=== PATIENT | female | born 1980 ===

== ENCOUNTER 2025-04-28 11:34 | Outpatient (REF) | payer OTHER, SELFPAY ==
--- OUTSIDE RECORDS SUMMARY | 2025-04-28 13:10 | XMS_ITS | Data Portability ---
Author Organization [facility], Main Office Address [address] [place] [address] Care Team Providers Care Candy Roller Name Role Phone ANTELMO FLORES Primary Care Provider MARIA ANTONIA LOREDO Staff Certified Nurse Midwife MILES WILLIAM Plastic/Reconstructive Surgeon TAMAR CORRIGAN Conservation Enforcement Officer JES HANSON Orthopedic Surgeon [phone] [facility] Referring Provider [facility] Phys. Med. & Rehab [facility] UROLOGY Urologist EVELYN MORE Referring Provider [phone] EMILE THOMAS Referring Provider Assessment Encounter Date Assessment Date Assessment LastModified by Organization Details LastModified Time 09/29/2024 09/29/2024 Discussed with patient the signs/symptom s warranted for a return to office visit and/or an ER visit. Patient understood and agreed with the plan. [email or web address] Not available 09/29/2024 15:49:41 Plan of Treatment Reminders Order Date Submit Date Provider Last Modified By Organization Details Last Modified Time Details Appointments FOLLOW UP 2024 09:45A M Antelmo trinh MD Not available Not available Not available Lab inflam mation panel, serum or plasma 2024 025 JEFE [facility] (Centralized Electronic Ordering - All Locations), Patient Can Go To The Location Of Their Choice, [id number] 12/24/2024 06:08:28 lipid panel, serum 2023 024 HOPKINS [facility] (Centralized Electronic Ordering - All Locations), Patient Can Go To The Location Of Their Choice, [address] 11/07/2024 08:06:35 CMP, serum or plasma 2023 024 [facility] (Centralized Electronic Ordering - All Locations), Patient Can Go To The Location Of Their Choice, [id number] 11/07/2024 08:06:35 CBC w/ auto diff 2023 024 [facility] (Centralized Electronic Ordering - All Locations), Patient Can Go To The Location Of Their Choice, [id number] 11/07/2024 08:06:34 Referral dermat luisito t referr al - Biancafu l skin lesion s at right side. 2024 025 [email or web address] [facility], [address], [address], [place], [address], 01/22/2025 08:56:51 Procedures None record ed. Surgeries None record ed. Imaging XR, chest, 2 view - Left-s ided chest pain. R/o lesion 2024 025 [facility] ([facility]), [address], [place], [address], 12/24/2024 16:52:51 electr ocardi ogram 2024 025 [email or web address] In-Office Order, Internal Use Only DO Not Attach Compendium DO Not Attach Compendium, Do Not Delete/merge, [id number] 12/23/2024 11:22:02 Medication Orders gabape ntin 300 mg capsul e 2024 025 [facility] #[id number], [address] [place], [address], 12/24/2024 09:29:13 valacy clovir 1 gram tablet 2024 025 [facility] #031, [address] [place], [address], 12/14/2024 11:41:37 oxycod one-ac etamin ophen 5 mg-325 mg tablet 2024 025 [facility] #0315, [address] [place], [address], 12/14/2024 11:50:51 Debrox 6.5 % ear drops 2023 024 [facility] #0315, [address] [place], [address], 10/12/2024 15:46:47 neomyc in-pete ymyxin -hydro doug 3.5 mg-10, 000 unit/m L-1 % ear drops, susp 2023 024 [facility] [address] [place], [address], 09/29/2024 15:35:47 Patient TargetsNo targets recorded. Patient Instructions Encounter Date Encounter Id Patient Instructions Last Modified By Organization Details Last Modified Time 08/16/2024 [id number] swimmer's ear: care instructions pmadden Not available 08/16/2024 16:32:47 Follow up if no improvement or if symptoms worsen. pmadden Not available 08/16/2024 17:39:37 12/14/2024 [id number] shingles: care instructions [email or web address] Not available 12/14/2024 11:41:34 [facility], all current and discharge medications (OTC, herbal therapies, supplements) reviewed and reconciled with patient and or caregiver, including potential side effects, drug interactions, instructions, and the consequences of not taking medication. Reviewed potential barriers to medication adherence, such as side effects from medication or cost of medication. Not available 12/14/2024 11:01:42 12/23/2024 [id number] skin lesions: care instructions [email or web address] Not available 12/23/2024 10:46:20 Reason for Referral Conservation Enforcement Officer Referral for S kin lesion Painful skin lesions at right side. Referring Physician: Antelmo Flores, Family Medicine, Encounter Date: 12/23/2024 Results Created Date Observation Date Name Description Value Unit Range Abnormal Flag Note LastModifiedBy Organization Detail LastModifiedTime 11/06/20 24 11/07/2024 CBC WITH DIFFE RENTI AL/PL ATELE T WBC 9.8 x10e3 /uL 3.4-10 .8 normal Not Available [facility] ([facility]) [address] [place], [address], 11/07/2024 08:06:34 11/06/20 24 11/07/2024 CBC WITH DIFFE RENTI AL/PL ATELE T RBC 4.82 x10e6 /uL 3.77-5 .28 normal Not Available [facility] ([facility]) [address] [place], [address], 11/07/2024 08:06:34 11/06/20 24 11/07/2024 CBC WITH DIFFE RENTI AL/PL ATELE T hemoglobin 14.5 g/dL 11.1-1 5.9 normal Not Available [facility] ([facility]) [address] [place], [address], 11/07/2024 08:06:34 11/06/20 24 11/07/2024 CBC WITH DIFFE RENTI AL/PL ATELE T hematocrit 44.5 % 34.0-4 6.6 normal Not Available [facility] ([facility]) [address] [place], [address], 11/07/2024 08:06:34 11/06/20 24 11/07/2024 CBC WITH DIFFE RENTI AL/PL ATELE T MCV 92 fL 79-97 normal Not Available [facility] ([facility]) [address] [place], [address], 11/07/2024 08:06:34 11/06/20 24 11/07/2024 CBC WITH DIFFE RENTI AL/PL ATELE T MCH 30.1 pg 26.6-3 3.0 normal Not Available [facility] ([facility]) [address] [place], [address], 11/07/2024 08:06:34 11/06/20 24 11/07/2024 CBC WITH DIFFE RENTI AL/PL ATELE T MCHC 32.6 g/dL 31.5-3 5.7 normal Not Available [facility] ([facility]) [address] [facility], [place], [address], 11/07/2024 08:06:34 11/06/20 24 11/07/2024 CBC WITH DIFFE RENTI AL/PL ATELE T RDW 12.9 % 11.7-1 5.4 Not Available [facility] ([facility]) [address] [facility], [place], [address], 11/07/2024 08:06:34 11/06/20 24 11/07/2024 CBC WITH DIFFE RENTI AL/PL ATELE T platelets 369 x10e3 /uL 150-45 0 normal Not Available [facility] ([facility]) [address] [facility], [place], [address], 11/07/2024 08:06:34 11/06/20 24 11/07/2024 CBC WITH DIFFE RENTI AL/PL ATELE T neutrophils 54 % not estab. normal Not Available [facility] ([facility]) [address] [facility], [place], [address], 11/07/2024 08:06:34 11/06/20 24 11/07/2024 CBC WITH DIFFE RENTI AL/PL ATELE T lymphs 32 % not estab. normal Not Available [facility] ([facility]) [address] [facility], [place], [address], 11/07/2024 08:06:34 11/06/20 24 11/07/2024 CBC WITH DIFFE RENTI AL/PL ATELE T monocytes 8 % not estab. normal Not Available [facility] ([facility]) [address] [facility], [place], [address], 11/07/2024 08:06:34 11/06/20 24 11/07/2024 CBC WITH DIFFE RENTI AL/PL ATELE T eos 5 % not estab. normal Not Available [facility] ([facility]) [address] [facility], [place], [address], 11/07/2024 08:06:34 11/06/20 24 11/07/2024 CBC WITH DIFFE RENTI AL/PL ATELE T basos 1 % not estab. normal Not Available [facility] ([facility]) [address] [place], [address], 11/07/2024 08:06:34 11/06/20 24 11/07/2024 CBC WITH DIFFE RENTI AL/PL ATELE T immature cells WE[employer] SERVICES ARCHITECT Not Available [facility] ([facility]) [address] [place], [address], 11/07/2024 08:06:34 11/06/20 24 11/07/2024 CBC WITH DIFFE RENTI AL/PL ATELE T neutrophils (absolute) 5.3 x10e3 /uL 1.4-7. 0 normal Not Available [facility] ([facility]) [address] [place], [address], 11/07/2024 08:06:34 11/06/20 24 11/07/2024 CBC WITH DIFFE RENTI AL/PL ATELE T lymphs (absolute) 3.2 x10e3 /uL 0.7-3. 1 above high normal Not Available [facility] ([facility]) [address] [place], [address], 11/07/2024 08:06:34 11/06/20 24 11/07/2024 CBC WITH DIFFE RENTI AL/PL ATELE T monocytes(ab solute) 0.8 x10e3 /uL 0.1-0. 9 normal Not Available [facility] ([facility]) [address] [place], [address], 11/07/2024 08:06:34 11/06/20 24 11/07/2024 CBC WITH DIFFE RENTI AL/PL ATELE T eos (absolute) 0.5 x10e3 /uL 0.0-0. 4 above high normal Not Available [facility] ([facility]) [address] [facility], [place], [address], 11/07/2024 08:06:34 11/06/20 24 11/07/2024 CBC WITH DIFFE RENTI AL/PL ATELE T baso (absolute) 0.1 x10e3 /uL 0.0-0. 2 normal Not Available [facility] ([facility]) [address] [facility], [place], [address], 11/07/2024 08:06:34 11/06/20 24 11/07/2024 CBC WITH DIFFE RENTI AL/PL ATELE T immature granulocytes 0 % not estab. Not Available [facility] ([facility]) [address] [facility], [place], [address], 11/07/2024 08:06:34 11/06/20 24 11/07/2024 CBC WITH DIFFE RENTI AL/PL ATELE T immature grans (abs) 0.0 x10e3 /uL 0.0-0. 1 Not Available [facility] ([facility]) [address] [facility], [place], [address], 11/07/2024 08:06:34 11/06/20 24 11/07/2024 CBC WITH DIFFE RENTI AL/PL ATELE T NRBC WE[employer] SERVICES ARCHITECT Not Available [facility] ([facility]) [address] [facility], [place], [address], 11/07/2024 08:06:34 11/06/20 24 11/07/2024 CBC WITH DIFFE RENTI AL/PL ATELE T hematology comments: WEB SERVICES ARCHITECT Not Available [facility] ([facility]) [address] [facility], [place], [address], 11/07/2024 08:06:34 11/06/20 24 11/07/2024 COMP. METAB OLIC PANEL (14) glucose 82 mg/dL 70-99 normal Not Available [facility] ([facility]) [address] [facility], [place], [address], 11/07/2024 08:06:35 11/06/20 24 11/07/2024 COMP. METAB OLIC PANEL (14) BUN 10 mg/dL 6-24 normal Not Available [facility] ([facility]) [address] [facility] [place], [address], 11/07/2024 08:06:35 11/06/20 24 11/07/2024 COMP. METAB OLIC PANEL (14) creatinine 0.82 mg/dL 0.57-1 .00 normal Not Available [facility] ([facility]) [address] [facility] [place], [address], 11/07/2024 08:06:35 11/06/20 24 11/07/2024 COMP. METAB OLIC PANEL (14) eGFR 92 mL/mi n/1.7 3 >59 normal Not Available [facility] ([facility]) [address] [facility], [place], [address], 11/07/2024 08:06:35 11/06/20 24 11/07/2024 COMP. METAB OLIC PANEL (14) BUN/creatini ne ratio 12 9-23 normal Not Available [facility] ([facility]) [address] [facility] [place], [address], 11/07/2024 08:06:35 11/06/20 24 11/07/2024 COMP. METAB OLIC PANEL (14) sodium 138 mmol/ L 134-14 4 normal Not Available [facility] ([facility]) [address] [facility] [place], [address], 11/07/2024 08:06:35 11/06/20 24 11/07/2024 COMP. METAB OLIC PANEL (14) potassium 4.4 mmol/ L 3.5-5. 2 normal Not Available [facility] ([facility]) [address] [facility] [place], [address], 11/07/2024 08:06:35 11/06/20 24 11/07/2024 COMP. METAB OLIC PANEL (14) chloride 101 mmol/ L 96-106 normal Not Available [facility] ([facility]) [address] [facility] [place], [address], 11/07/2024 08:06:35 11/06/20 24 11/07/2024 COMP. METAB OLIC PANEL (14) carbon dioxide, total 26 mmol/ L 20- normal Not Available [facility] ([facility]) [address] [facility] [place], [address], 11/07/2024 08:06:35 11/06/20 24 11/07/2024 COMP. METAB OLIC PANEL (14) calcium 9.8 mg/dL 8.7-10 .2 normal Not Available [facility] ([facility]) [address] [facility] [place], [address], 11/07/2024 08:06:35 11/06/20 24 11/07/2024 COMP. METAB OLIC PANEL (14) protein, total 6.5 g/dL 6.0-8. 5 normal Not Available [facility] ([facility]) [address] [facility] [place], [address], 11/07/2024 08:06:35 11/06/20 24 11/07/2024 COMP. METAB OLIC PANEL (14) albumin 4.3 g/dL 3.9-4. 9 normal Not Available [facility] ([facility]) [address] [facility] [place], [address], 11/07/2024 08:06:35 11/06/20 24 11/07/2024 COMP. METAB OLIC PANEL (14) globulin, total 2.2 g/dL 1.5-4. 5 Not Available [facility] ([facility]) [address] [facility] [place], [address], 11/07/2024 08:06:35 11/06/20 24 11/07/2024 COMP. METAB OLIC PANEL (14) bilirubin, total 0.4 mg/dL 0.0-1. 2 normal Not Available [facility] ([facility]) [address] [facility] [place], [address], 11/07/2024 08:06:35 11/06/20 24 11/07/2024 COMP. METAB OLIC PANEL (14) alkaline phosphatase 62 IU/L 44-121 normal Not Available [facility] [address] [facility] [place] [address], 11/07/2024 08:06:35 11/06/20 24 11/07/2024 COMP. METAB OLIC PANEL (14) AST (SGOT) 17 IU/L 0-40 normal Not Available [facility] ([facility]) [address] [facility] [place], [address], 11/07/2024 08:06:35 11/06/20 24 11/07/2024 COMP. METAB OLIC PANEL (14) ALT (SGPT) 18 IU/L 0-32 normal Not Available [facility] ([facility]) [address] [facility] [place], [address], 11/07/2024 08:06:35 11/06/20 24 11/07/2024 LIPID PANEL cholesterol, total 175 mg/dL 100-19 9 normal Not Available [facility] ([facility]) [address] [facility] [place], [address], 11/07/2024 08:06:35 11/06/20 24 11/07/2024 LIPID PANEL triglyceride s 141 mg/dL 0-149 normal Not Available [facility] ([facility]) [address] [facility] [place], [address], 11/07/2024 08:06:35 11/06/20 24 11/07/2024 LIPID PANEL HDL cholesterol 53 mg/dL >39 normal Not Available [facility] ([facility]) [address] [facility] [place], [address], 11/07/2024 08:06:35 11/06/20 24 11/07/2024 LIPID PANEL VLDL cholesterol susana 25 mg/dL 5-40 Not Available [facility] ([facility]) [address] [facility] [place], [address], 11/07/2024 08:06:35 11/06/20 24 11/07/2024 LIPID PANEL LDL chol calc ([facility]) 97 mg/dL 0-99 Not Available [facility] ([facility]) [address] [facility], [place], [address], 11/07/2024 08:06:35 11/06/20 24 11/07/2024 LIPID PANEL LDL calc comment: WEB SERVICES ARCHITECT Not Available [facility] ([facility]) [address] [facility], [place], [address], 11/07/2024 08:06:35 12/23/19 25 12/23/2024 ESR-W ES+CR P sedimentatio n rate-westerg jason 2 mm/HR 0-32 normal Not Available [facility] ([facility]) [address] [facility], [place], [address], 12/24/2024 06:08:28 12/23/19 25 12/24/2024 ESR-W ES+CR P C-reactive protein, quant 2 mg/L 0-10 normal Not Available [facility] ([facility]) [address] [place], [address], 12/24/2024 06:08:28 12/23/19 25 12/23/2024 elect rocar diogr am No observ ation record ed. [email or web address] In-Office Order Internal Use Only DO Not Attach Compendium DO Not Attach Compendium, Do Not Delete/merge, [id number] 12/23/2024 12:56:19 12/23/19 jason chiu am No observ ation record ed. jose In-Office Order Internal Use Only DO Not Attach Compendium DO Not Attach Compendium, Do Not Delete/merge, [id number] 12/24/2024 08:21:27 12/24/19 25 12/24/2024 XR, chest , 2 view Examin ation: Chest perfor med on 025. Histor y: Wall pain. Findin gs: Fronta l and latera l views of the chest are compar ed to a prior study dated 014. The cardia c and medias tinal silhou ettes are within normal limits . The lungs are clear. The osseou s and soft tissue struct ures are unrema rkable . Surgic al clips are seen in the right upper quadra nt. Impres palmer: There is no acute cardio pulmon claude diseas e. WSN: [id number] Orderi ng Physic kassie: Antelmo Barajas Dictat ed By: Dannielle Martinez MD Dictat ed Date/T whitney: 4:49 pm Review ed By: Dannielle Martinez MD Signed By: Dannielle Martinez MD Signed Date/T whitney: 4:49 pm Transc ribed By: CSB Transc ribed Date/T whtiney: 4:49 pm Patien t Class: Outpat ient [facility] (Outpt Imaging) [address] [place], [address], 12/25/2024 13:13:49 04/01/2003/30/2025 MAMMO , scree gustavo, digit al, bilat eral No observ ation record ed. [email or web address] [facility] [address] [facility], [place], [address], 04/05/2025 13:37:00 Result Notes Documentation Provider Name and Address Organization Details Recorded Time Xr, Chest, 2 View : Examination: Chest performed on 12/24/2024. History: Wall pain. Findings: Frontal and lateral views of the chest are compared to a prior study dated 06/07/2014. The cardiac and mediastinal silhouettes are within normal limits. The lungs are clear. The osseous and soft tissue structures are unremarkable. Surgical clips are seen in the right upper quadrant. Impression: There is no acute cardiopulmonary disease. WSN: [id number] Ordering Physician: Antelmo Flores Dictated By: Dannielle Dhaliwal MD Dictated Date/Time: 12/24/24 4:49 pm Reviewed By: Dannielle Dhaliwal MD Signed By: Dannielle Dhaliwal MD Signed Date/Time: 12/24/24 4:49 pm Transcribed By: ADAN Transcribed Date/Time: 12/24/24 4:49 pm Patient Class: Outpatient Antelmo Flores MD [address], [address], [facility] 12/25/2024 08:15:53 Problems Name Problem SNOMED Code Status Onset Date Resolution Date Notes Provider Name and Address Organization Details Recorded Time Acute asthma [id number] Completed 201205/24/2014 IMPRESSI ON: ADVAIR FOR THE WEEK TO GET SXS UNDER CONTROL. ; RECORDED 10/08/20 13 1:39PM BY JAMESON DOBSON MA, ANNOTATI ON/MEL Flores MD [address] [address], [place], [address] , [facility] 6 17:34:35 Acute pharyngi tis [id number] Completed 201205/24/2014 IMPRESSI ON: ADVISED HER TO TAKE 800 MG IBUPROFE N. NO ABX NEEDED. WILL SEND FOR CX.; RECORDED 11/25/19 13 3:56PM BY ULISSES MUNOZ ON/MEL Flores MD [address] [address], [place], [address] , [facility] 6 17:34:35 Patient status finding [id number] Completed 201205/24/2014 RECORDED 11/01/20 13 1:48PM BY ULISSES MUNOZ ON/MEL Flores MD [address] [address], [place], [address] , [facility] 6 17:34:35 Intrinsi c asthma [id number] Completed 201105/24/2014 RECORDED 06/16/20 12 12:59PM BY ULISSES MUNOZ ON/MEL Flores MD [address] [address], [place], [address] , [facility] 6 17:34:35 Screenin g for malignan t neoplasm of cervix Completed 201205/24/2014 RECORDED 10/08/20 13 1:39PM BY JAMESON DOBSON MA, ULISSES ON/MEL Flores MD [address] [address], [place], [address] , [facility] 6 17:34:35 History of depressi on [id number] Completed 201105/24/2014 RECORDED 06/16/20 12 12:59PM BY ULISSES MUNOZ ON/MEL Flores MD [address] [address], [place], [address] , [facility] 6 17:34:35 Diarrhea 37638393 Completed 201105/24/2014 IMPRESSI ON: SXS NOW X > 1 WEEK, MAINLY GEN ABDO CRAMPING AND WATERY DIARRHEA . NO CLEAR CLOSE SICK CONTACTS , NO TRAVEL OR UNUSUAL FOODS, NO RECENT ABX USE. GIVEN DURATION AND SEVERITY CHECK LABS AND STOOL STUDIES. ADVISED RE HYDRATIO N, BRAT DIET, AVOID DAIRY AND FATTY FOODS. WILL BE IN TOUCH WITH RESULTS, PT TO CALL SOONER PRN.; RECORDED 10/27/20 12 1:22PM BY ULISSES MUNOZ ON/ADDEN DUM Antelmo Flores MD [address] [facility] [address], [place], [address] , [facility] 6 17:34:35 Dizzines s and giddines s [id number] Completed 201105/24/2014 RECORDED 06/16/20 12 12:59PM BY CHARI LIVINGSTON I, ANNOTATI ON/ Antelmo Flores MD [address] [facility] [address], [place], [address] , [facility] 6 17:34:35 Blood coagulat ion disorder 99798499 Completed 201307/25/2014 RECORDED 04/13/20 14 3:53PM BY YARA العراقي MA, OFFICE VISIT Antelmo Flores MD [address] [address], [place], [address] , [facility] 6 17:34:35 Malaise and fatigue 265266705 Completed 201105/24/2014 RECORDED 10/27/20 12 1:22PM BY CHARI LIVINGSTON I, NISHIATI ON/ [facility] 7 15:09:29 Influenz a vaccine needed [id number] 06 Completed 201205/24/2014 RECORDED 11/25/19 13 4:08PM BY CHARI LIVINGSTON I, OFFICE VISIT Antelmo Flores MD [address] [facility] [address], [place], [address] , [facility] 6 17:34:35 Noninfec tious gastroen teritis 07677381 Completed 201105/24/2014 IMPRESSI ON: DAY THREE, NOW WITH DIARRHEA ONLY. NO FEVERS, TOLERATI NG PO WELL. ADVISED RE IMPORTAN CE OF ORAL REHYDRAT ION, BRAT DIET. CALL FOR WORSENIN G/PRN. TO ER FOR S/SXS OF DEHYDRAT ION WHICH WERE DISCUSSE D WITH PT AND . ; RECORDED 10/27/20 12 1:22PM BY ULISSES MUNOZ ON/ADDJOHN PAUL Flores MD [address] [address], [place], [address] , [facility] 6 17:34:35 Pain in limb 99109019 Completed 201105/24/2014 IMPRESSI ON: NEED TO R/O DVT. IT IS ALMOST 5PM. PHYSICAL EXAM IS CONVINCI NG FOR DVT SO NEED TO R/O URGENTLY PT SENT TO ER.; RECORDED 06/16/20 12 12:59PM BY ULISSES MUNOZ ON/MEL Flores MD [address] [address], [place], [address] , [facility] 6 17:34:35 Cataplex y and narcolep sy 378674443 Active 2013 Not Available [facility] 1 09:53:05 Administ ration of bacteria l and viral vaccine Completed 201105/24/2014 RECORDED 11/18/19 12 12:58PM BY MARIANA MOREL, MAEIC AL SUMMARY Antelmo Flores MD [address] [address], [place], [address] , [facility] 6 17:34:35 Varicell a vaccinat ion Completed 201105/24/2014 RECORDED 11/18/19 12 12:58PM BY MORENO CODY AL SUMMARY Antelmo Flores MD [address] [facility] [address], [place], [address] , [facility] 6 17:34:35 Phlebiti s and thrombop hlebitis Completed 201205/24/2014 RECORDED 11/01/20 13 1:48PM BY ULISSES MUNOZ ON/ADDEN DUM Antelmo Flores MD [address] [address], [place], [address] , [facility] 6 17:34:35 Adult health examinat ion Completed 201205/24/2014 RECORDED 04/30/20 13 10:31AM BY ULISSES MUNOZ ON/MEL Flores MD [address], [place], [address] , [facility] 6 17:34:35 Acute sinusiti s 25814014 Completed 201205/24/2014 IMPRESSI ON: GIVE IT 4 MORE DAYS BEFORE STARTING ABX. DO FLONASE AND SUDAFED; RECORDED 10/08/20 13 1:39PM BY JAMESON DOBSON MA, ANNOTATI ON/MEL [facility]o [facility] 0 12:55:38 Disorder of skin and/or subcutan eous tissue 73718643 Active 2012 Not Available [facility] 1 09:53:05 Streptoc occal sore throat 92998974 Completed 201205/24/2014 RECORDED 11/25/19 13 3:56PM BY ULISSES MUNOZ ON/MEL Flores MD [address], [place] [place], [address] , [facility] 6 17:34:35 Abnormal ity of systemic vein [id number] Completed 201105/24/2014 RECORDED 06/16/20 12 12:59PM BY ULISSES MUNOZ ON/MEL Flores MD [address] [facility] [address], [place], [address] , [facility] 6 17:34:35 Retentio n of urine [id number] Completed 201205/24/2014 IMPRESSI ON: GIVEN THE FACT THAT THIS HAS BEEN GOING ON FOR YEARS IT IS PROBABLY A SIDE EFFECT OF THE STRATERR A WHICH SHE HAS BEEN ON FOR THE SAME AMOUNT OF TIME.; RECORDED 04/30/20 13 10:31AM BY ULISSES MUNOZ ON/MEL Flores MD [address] [address], [place], [address] , [facility] 6 17:34:35 Acute asthma [id number] Completed 201206/20/2014 IMPRESSI ON: ADVAIR FOR THE WEEK TO GET SXS UNDER CONTROL. ; RECORDED 10/08/20 13 1:39PM BY JAMESON DOBSON MA, ULISSES ON/MEL Flores MD [address] [address], [place], [address] , [facility] 6 17:34:35 Acute pharyngi tis [id number] Completed 201206/20/2014 IMPRESSI ON: ADVISED HER TO TAKE 800 MG IBUPROFE N. NO ABX NEEDED. WILL SEND FOR CX.; RECORDED 11/25/19 13 3:56PM BY ULISSES MUNOZ ON/MEL Flores MD [address] [address], [place], [address] , [facility] 6 17:34:35 Patient status finding [id number] Completed 201206/20/2014 RECORDED 11/01/20 13 1:48PM BY ULISSES MUNOZ ON/MEL Flores MD [address] [address], [place], [address] , [facility] 6 17:34:35 Intrinsi c asthma [id number] Completed 201106/20/2014 RECORDED 06/16/20 12 12:59PM BY ULISSES MUNOZ ON/MEL Flores MD [address] [address], [place], [address] , [facility] 6 17:34:35 Screenin g for malignan t neoplasm of cervix Completed 201206/20/2014 RECORDED 10/08/20 13 1:39PM BY JAMESON DOBSON MA, ULISSES ON/MEL Flores MD [address] [address], [place], [address] , [facility] 6 17:34:35 History of depressi on [id number] Completed 201106/20/2014 RECORDED 06/16/20 12 12:59PM BY ULISSES MUNOZ ON/MEL Flores MD [address] [address], [place], [address] , [facility] 6 17:34:35 Diarrhea [id number] Completed 201106/20/2014 IMPRESSI ON: SXS NOW X > 1 WEEK, MAINLY GEN ABDO CRAMPING AND WATERY DIARRHEA . NO CLEAR CLOSE SICK CONTACTS , NO TRAVEL OR UNUSUAL FOODS, NO RECENT ABX USE. GIVEN DURATION AND SEVERITY CHECK LABS AND STOOL STUDIES. ADVISED RE HYDRATIO N, BRAT DIET, AVOID DAIRY AND FATTY FOODS. WILL BE IN TOUCH WITH RESULTS, PT TO CALL SOONER PRN.; RECORDED 10/27/20 12 1:22PM BY ULISSES MUNOZ ON/MEL Flores MD [address] [address], [place], [address] , [facility] 6 17:34:35 Dizzines s and giddines s [id number] Completed 201106/20/2014 RECORDED 06/16/20 12 12:59PM BY ULISSES MUNOZ ON/MEL Flores MD [address] [address], [place], [address] , [facility] 6 17:34:35 Malaise and fatigue [id number] Completed 201106/20/2014 RECORDED 10/27/20 12 1:22PM BY NISHI MUNOZATI ON/ADDEN DUM Martha Tello MA [facility] 7 15:09:29 Influenz a vaccine needed [id number] 06 Completed 201206/20/2014 RECORDED 11/25/19 13 4:08PM BY CHARI LIVINGSTON I, OFFICE VISIT Antelmo Flores MD [address] [facility] [address], [place], [address] , [facility] 6 17:34:35 Noninfec tious gastroen teritis [id number] Completed 201106/20/2014 IMPRESSI ON: DAY THREE, NOW WITH DIARRHEA ONLY. NO FEVERS, TOLERATI NG PO WELL. ADVISED RE IMPORTAN CE OF ORAL REHYDRAT ION, BRAT DIET. CALL FOR WORSENIN G/PRN. TO ER FOR S/SXS OF DEHYDRAT ION WHICH WERE DISCUSSE D WITH PT AND . ; RECORDED 10/27/20 12 1:22PM BY NISHI MUNOZATI ON/ADDEN DUM Antelmo Flores MD [address] [facility] [address], [place], [address] , [facility] 6 17:34:35 Pain in limb 23222912 Completed 201106/20/2014 IMPRESSI ON: NEED TO R/O DVT. IT IS ALMOST 5PM. PHYSICAL EXAM IS CONVINCI NG FOR DVT SO NEED TO R/O URGENTLY PT SENT TO ER.; RECORDED 06/16/20 12 12:59PM BY CHARI LIVINGSTON I, NISHIATI ON/ADDEN DUM Antelmo Flores MD [address] [facility] [address], [place], [address] , [facility] 6 17:34:35 Administ ration of bacteria l and viral vaccine Completed 201106/20/2014 RECORDED 11/18/19 12 12:58PM BY MARIANA MOREL, HISTORIC AL SUMMARY Antelmo Flores MD [address] [facility] [address], [place], [address] , [facility] 6 17:34:35 Varicell a vaccinat ion Completed 201106/20/2014 RECORDED 11/18/19 12 12:58PM BY MARIANA MOREL, HISTORIC AL SUMMARY Antelmo Flores MD [address] [facility] [address], [place], [address] , [facility] 6 17:34:35 Patient status finding [id number] Completed 201307/25/2014 RECORDED 04/21/20 14 8:39AM BY ULISSES MUNOZ ON/ADDJOHN PAUL Flores MD [address] [facility] [address], [place], [address] , [facility] 6 17:34:35 Phlebiti s and thrombop hlebitis Completed 201206/20/2014 RECORDED 11/01/20 13 1:48PM BY ULISSES MUNOZ ON/MLE Flores MD [address] [facility] [address], [place], [address] , [facility] 6 17:34:35 Adult health examinat ion Completed 201206/20/2014 RECORDED 04/30/20 13 10:31AM BY ULISSES MUNOZ ON/MEL Flores MD [address] [facility] [address], [place], [address] , [facility] 6 17:34:35 Acute sinusiti s [id number] Completed 201206/20/2014 IMPRESSI ON: GIVE IT 4 MORE DAYS BEFORE STARTING ABX. DO FLONASE AND SUDAFED; RECORDED 10/08/20 13 1:39PM BY JAMESON DOBSON MA, ULISSES ON/ADDEN DUM YEN Mayes, [facility] 0 12:55:38 Disorder of skin and/or subcutan eous tissue [id number] Completed 201306/20/2014 IMPRESSI ON: POSSIBLE URTICARI A OF UNCLEAR ETIOLOGY ; WILL TREAT WITH ANTI-HIS TAMINE AND DO A REFERRAL FOR A DERMATOL OGIST.; RECORDED 04/13/20 14 11:46AM BY YARA العراقي MA, ULISSES ON/ADDEN RHINA Tamara KeonAna tineo MA null, [facility] 0 12:55:43 Streptoc occal sore throat 73134983 Completed 201206/20/2014 RECORDED 11/25/19 13 3:56PM BY ULISSES MUNOZ/MEL Flores MD [address], [place], [address] , [facility] 6 17:34:35 Abnormal ity of systemic vein 629992793 Completed 201106/20/2014 RECORDED 06/16/20 12 12:59PM BY ULISSES MUNOZ ON/MEL Flores MD [address], [place], [address] , [facility] 6 17:34:35 Acute upper respirat ory infectio n [id number] Completed 201306/20/2014 IMPRESSI ON: SINUS RINSE ALSO IF NOT IMPROVIN G IN 1 WEEK CALL THE OFFICE.; RECORDED 04/21/20 14 8:38AM BY ULISSES MUNOZ/MEL Flores MD [address], [place], [address] , [facility] 6 17:34:35 Retentio n of urine [id number] Completed 201206/20/2014 IMPRESSI ON: GIVEN THE FACT THAT THIS HAS BEEN GOING ON FOR YEARS IT IS PROBABLY A SIDE EFFECT OF THE STRATERR A WHICH SHE HAS BEEN ON FOR THE SAME AMOUNT OF TIME.; RECORDED 06/21/20 13 10:31AM BY ULISSES MUNOZ ON/MEL Flores MD [address], [place], [address] , [facility] 6 17:34:35 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 434777314 Active 2013 Not Available [facility] 09:53:05 Factor V deficien cy 2127831 Active Not Available [facility] 09:53:05 Decrease d hearing 399204654 Active Not Available [facility] 09:53:05 Conjunct ivitis 7488810 Completed 08/03/2015 Antelmo Flores MD [address], [place], [address] , [facility] 6 17:34:35 Chalazio n 7143074 Active Not Available [facility] 09:53:05 Acute conjunct ivitis 22046614 Completed 10/01/2017 [place], [facility] 7 15:09:52 Acute sinusiti s 54366328 Completed 09/05/2020 YEN Mayes, [facility] 0 12:55:37 Otitis media 08578532 Active Not Available [facility] 09:53:05 Computed tomograp hy result abnormal 657766074 Active Not Available [facility] 09:53:05 Thyroid nodule 768640905 Active Not Available [facility] 09:53:05 Migraine 92981705 Active Followed by Dr Quintero Not Available [facility] 09:53:05 Backache 988793009 Active Not Available [facility] 09:53:05 Low back pain 652451764 Active seen at [facility] and improved with injectio ns Not Available [facility] 09:53:05 Ptosis of eyelid 86460900 Active 2014 Upper lid; followed by Dr William Not Available [facility] 1 09:53:05 Malaise and fatigue 508387784 Completed 10/01/2017 Martha park, [facility] 7 15:09:29 Epidermo id cyst 850269417 Active 2016 Right axilla; drained by derm Not Available [facility] 1 09:53:05 Bilatera l knee pain Completed 201610/01/2017 Martha park, [facility] 7 15:09:37 Swelling of knee joint 517460315 Active 2016 Not Available [facility] 1 09:53:05 Pain of wrist region 00027152 Active 2017 Not Available [facility] 1 09:53:05 Herniati on of lumbar interver tebral disc with sciatica 73546460176 4105 Active 2020 Herniati on at L5-S1. 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 Schedule d for microdis cectomy. Antelmo Flores MD [address], [place], [address] , [facility] 2 08:33:40 Obesity 666490399 Active 2021 Alley [place], [facility] 2 09:59:23 Overacti ve urinary bladder 789195054 Active 2021 Followed by urology and stable on meds. Antelmo Flores MD [address], [place], [address] , [facility] 2 11:08:55 History of SARS-CoV -2 [id number] 2582414 Active 2021 Antelmo Flores MD [address], [place], [address] , [facility] 2 15:44:46 COVID-19 067382601 Completed 202209/29/2024 Tamara tineo MA null, [facility] 4 15:35:54 Generali zed anxiety disorder 09208537 Active 2022 Antelmo Flores MD [address], [place], [address] , [facility] 3 16:20:05 Insomnia 312974786 Active 2022 Antelmo Flores MD [address], [place], [address] , [facility] 3 16:20:14 Major depressi ve disorder 218280643 Active 2022 Antelmo Flores MD [address], [place], [address] , [facility] 3 16:20:24 Morbid obesity 489556271 Completed 202310/13/2024 Removal Reason: resolved on weight loss meds Antelmo Flores MD [address], [place], [address] , [facility] 4 11:11:15 Body mass index 30+ - obesity 692945482 Active 2023 Gabo Garcia MD [address], [place], [address] , [facility] 4 17:03:55 Problem Notes None recorded. Procedures Surgical History Date Name Laterality Status Provider Name and Address Organization Details Recorded Time 025 Most Recent Mammogram completed Anne Lance [facility] 04/05/2025 13:36:57 025 Mammogram screening completed Anne Lance [facility] 04/05/2025 13:34:57 024 Mammogram both breasts completed Patsy Nugent [facility] 03/31/2024 13:05:10 022 Date of Last Pap Smear completed Karen Martinez [facility] 10/13/2024 10:08:55 022 laminectomy completed Justyna Peñaloza RN [facility] 01/17/2022 09:42:38 021 injection completed Jess Morel [facility] 06/01/2021 14:49:17 021 injection of facet joint completed Jess Morel [facility] 01/03/2021 09:37:39 019 electromyography completed Jess Adriel [facility] 06/25/2019 09:04:23 017 Other completed Antelmo Flores MD [address], [address], [facility] 05/10/2019 16:16:20 016 Eye Surgery completed Jessadrienne Morel [facility] 11/14/2016 11:09:40 016 injection of cortisone completed Tamara evans MA [facility] 09/29/2024 15:38:27 014 Caesarean Section completed Chari Damon [facility] 07/25/2014 13:57:02 011 Rhinoplasty completed Antelmo Flores MD [address] [address], [place], [address], [facility] 05/10/2019 16:17:15 005 Cholecystectomy completed Antelmo Flores MD [address], [address], [facility] 07/25/2014 14:09:39 005 Colonoscopy completed Rhona Good MA [facility] 08/03/2020 15:49:35 990 Tonsillectomy completed Antelmo Flores MD [address] [facility] [address], [place], [address], [facility] 05/10/2019 16:17:52 987 Tonsillectomy completed Rhona Good MA [facility] 08/03/2020 15:49:35 987 Adenoidectomy completed Rhona Good MA [facility] 08/03/2020 15:49:35 Imaging Results None recorded. Procedure Notes None recorded. Medical Equipment None Reported. Allergies Allergen ID Allergen Name Allergen Category Reaction Reaction Severity Criticality Documentation Date Start Date Code Code System Note Provider Name and Address Organization Details Recorded Time 09537 Augmentin medicatio n Not available Not available Not available 08/03/2020 16523 2 [facility] 15:[facility]05 3867 Product containin g penicilli n (product) medicatio n rash Not available Not available 05/24/2014 [address] [facility] [address], [place], [address], [facility] 5 15:59:51 Medications Name Sig Start Date Stop Date Status Note LastModified by Organization Details LastModified Time Prescript ion - Renewal 08/08 completed Not Available Not Available Not Available cyclobenz aprine 10 mg tablet TAKE 1 TABLET (ORAL) AT BEDTIME NEEDED FOR MUSCLE SPASM 05/26 completed Not Available Not Available Not Available Mirena 21 mcg/24 hr (up to 8 years) 52 mg intrauter ine device Take 1 device every day by intraute rine route. active Not Available Not Available No t Available terconazo le 0.4 % vaginal cream 05/02 completed Not Available Not Available Not Available prednison e 10 mg tablet 05/10 completed Not Available Not Available Not Available doxycycli ne hyclate 100 mg capsule Take 1 capsule twice a day by oral route as directed for 7 days. 10/01 completed Not Available Not Available Not Available clindamyc in HCl 300 mg capsule TAKE 1 CAPSULE BY MOUTH THREE TIMES A DAY FOR 7 DAYS 08/16 completed Not Available Not Available Not Available Vitamin C 500 mg tablet Take 1 tablet every day by oral route. active Not Available Not Available No t Available trazodone 50 mg tablet 05/10 completed Not Available Not Available Not Available cetirizin e 10 mg tablet TAKE 1 TABLET BY MOUTH EVERY DAY active Not Available Not Available No t Available oxybutyni n chloride ER 10 mg tablet,ex tended release 24 hr active Not Available Not Available Not Available azithromy lalo 250 mg tablet DAILY 05/02 completed Not Available Not Available Not Available tizanidin e 4 mg tablet TAKE 1 TABLET BY MOUTH 3 TIMES A DAY, NEEDED FOR SPASMS 09/24 completed Not Available Not Available Not Available methylphe nidate 10 mg tablet 10/01 completed Not Available Not Available Not Available valacyclo vir 1 gram tablet TAKE 1 TABLET BY MOUTH EVERY 12 HOURS FOR 5 DAYS active Not Available Not Available No t Available sumatript an 100 mg tablet take 1 at start of headache and may repeat in 2 hours with a max in 2 in 24 hours. 05/10 completed Not Available Not Available Not Available tolterodi ne ER 4 mg capsule,e xtended release 24 hr TAKE 1 CAPSULE BY MOUTH EVERY DAY active Not Available Not Available No t Available methylphe nidate 20 mg tablet Take 1 tablet twice a day by oral route. 05/10 completed Not Available Not Available Not Available meloxicam 15 mg tablet TAKE 1 TABLET BY MOUTH EVERY DAY 08/03 completed Not Available Not Available Not Available ondansetr on HCl 4 mg tablet Take 2 tablets twice a day by oral route as needed for 3 days. 05/10 completed Not Available Not Available Not Available prednison e 20 mg tablet TAKE 2 TABLETS BY MOUTH EVERY DAY FOR 5 DAYS 05/26 completed Not Available Not Available Not Available clonazepa m 0.5 mg tablet Take 2 tablets twice a day by oral route. 08/01 completed Not Available Not Available Not Available sertralin e 100 mg tablet TAKE 2 TABLETS BY MOUTH EVERY DAY active Not Available Not Available No t Available clonazepa m 1 mg tablet 10/01 completed Not Available Not Available Not Available Debrox 6.5 % ear drops INSTILL 5 DROPS INTO AFFECTED EAR(S) BY OTIC ROUTE 2 TIMES PER DAY 10/12 completed Not Available Not Available Not Available clobetaso l 0.05 % topical cream active Not Available Not Available Not Available Advair Diskus 100 mcg-50 mcg/dose powder for inhalatio n TWO TIMES DAILY 05/07 completed RECORDED 05/20/20 13 1:48PM BY GEO ESCALANTE, MEDICATI ON AUTO-AMBER CTIVATIO N; Not Available Not Available Not Available zolmitrip plaza 5 mg disintegr ating tablet Take 1 at start of LOFTON and MR x1 after 2 hours with max of 2 in 24 hours 12/26 completed Not Available Not Available Not Available sulfameth oxazole 800 mg-trimet hoprim 160 mg tablet TAKE 1 TABLET BY MOUTH TWICE A DAY FOR 5 DAYS 09/24 completed Not Available Not Available Not Available aspirin 81 mg tablet,de layed release Take 1 tablet every day by oral route. active Not Available Not Available No t Available ondansetr on 8 mg disintegr ating tablet PLACE 1 TABLET TWICE A DAY BY TRANSLIN GUAL ROUTE NEEDED, FOR NAUSEA. active Not Available Not Available No t Available oxycodone -acetamin ophen 5 mg-325 mg tablet TAKE 1 TABLET BY MOUTH TWICE A DAY NEEDED FOR 7 DAYS active Not Available Not Available No t Available lorazepam 0.5 mg tablet Take 1 tablet every day by oral route for 10 days. 09/24 completed Not Available Not Available Not Available trazodone 100 mg tablet TAKE 1 TABLET TWICE A DAY BY ORAL ROUTE FOR 90 DAYS FOR INSOMNIA . 2024 active Not Available Not Available Not Avai lable benzonata te 100 mg capsule TAKE 1 CAPSULE BY MOUTH THREE TIMES A DAY FOR COUGH active Not Available Not Available No t Available erythromy lalo 5 mg/gram (0.5 %) eye ointment 09/03 completed Not Available Not Available Not Available nortripty line 10 mg capsule 05/10 completed Not Available Not Available Not Available buspirone 30 mg tablet 1 bid 08/01 completed Not Available Not Available Not Available buspirone 10 mg tablet TAKE 2 TABLETS BY MOUTH TWICE A DAY active Not Available Not Available No t Available polymyxin B sulfate 10,000 unit-trim ethoprim 1 mg/mL eye drops INSTILL 1 DROP BY OPHTHALM IC ROUTE 4 TIMES A DAY FOR 7 DAYS 09/04 completed Not Available Not Available Not Available warfarin 5 mg tablet QD PER INR RESULTS 11/25 completed RECORDED 11/25/19 13 4:41PM BY ANTELMO MARTINEZ MD, ANNOTATI ON/ADDJOHN PAUL DUM; Not Available Not Available Not Available fluoxetin e 10 mg capsule Take 1 capsule every day by oral route. 10/01 completed Not Available Not Available Not Available gabapenti n 300 mg capsule Take 1 capsule 3 times a day by oral route for 30 days. active Not Available Not Available No t Available buspirone 7.5 mg tablet 05/02 completed Not Available Not Available Not Available diclofena c sodium 75 mg tablet,de layed release 09/03 completed Not Available Not Available Not Available hydroxyzi ne HCl 25 mg tablet TAKE 1 TABLET 3 TIMES A DAY BY ORAL ROUTE FOR 90 DAYS, FOR ANXIETY. 10/12 completed Not Available Not Available Not Available oxycodone -acetamin ophen 2.5 mg-325 mg tablet 1 three times a day for 3 days, then 1 two times a day for 3 days then 1 daily for 3 days. 09/24 completed Not Available Not Available Not Available Aspirin EC 325 mg tablet,de layed release THREE TIMES DAILY, NEEDED W/ FOOD 10/18 completed RECORDED 10/18/20 13 10:59AM BY NACHO GARCIA MD, MEDICATI ON AUTO-AMBER CTIVATIO N; Not Available Not Available Not Available lorazepam 1 mg tablet active Not Available Not Available Not Available diazepam 10 mg tablet 10/01 completed Not Available Not Available Not Available methylpre dnisolone 4 mg tablets in a dose pack 08/03 completed Not Available Not Available Not Available albuterol sulfate HFA 90 mcg/actua tion aerosol inhaler INHALE 2 PUFFS EVERY 4 HOURS NEEDED FOR 30 DAYS active Not Available Not Available No t Available ondansetr on 4 mg disintegr ating tablet 05/10 completed Not Available Not Available Not Available fluticaso ne propionat e 50 mcg/actua tion nasal spray,luiz pension INHALE 2 SPRAYS INTO EACH NOSTRIL ONCE DAILY DIRECTED 05/26 completed Not Available Not Available Not Available sertralin e 50 mg tablet Take 1 tablet every day by oral route for 30 days. 09/05 completed Not Available Not Available Not Available buspirone 15 mg tablet TAKE 1 TABLET TWICE A DAY BY ORAL ROUTE FOR 90 DAYS, FOR ANXIETY. 12/14 completed Not Available Not Available Not Available neomycin- polymyxin -hydrocor t 3.5 mg-10,000 unit/mL-1 % ear drops,luiz p PLEASE SEE ATTACHED FOR DETAILED DIRECTIO NS 09/29 completed Not Available Not Available Not Available enoxapari n 80 mg/0.8 mL subcutane ous syringe TWO TIMES DAILY 03/30 completed RECORDED 03/30/20 12 10:52AM BY GEO ESCALANTE, MEDICATI ON AUTO-AMBER CTIVATIO N; Not Available Not Available Not Available enoxapari n 100 mg/mL subcutane ous syringe active RECORDED 04/07/20 12 4:11PM BY JOSE CATHERINE, ANNOTATI ON/ADD DUM; Not Available Not Available Not Available enoxapari n 40 mg/0.4 mL subcutane ous syringe active Not Available Not Available Not Available TriNessa (28) 0.18 mg(7)/0.2 15 mg(7)/0.2 5 mg(7)-35 mcg tablet DAILY active RECORDED 06/16/20 12 2:22PM BY ANTELMO MARTINEZ MD, ANNOTATI ON/ADDEN DUM; Not Available Not Available Not Available mirtazapi ne 7.5 mg tablet TAKE 1 TABLET BY MOUTH EVERY DAY AT NIGHT active Not Available Not Available No t Available solifenac in 10 mg tablet TAKE 1 TABLET BY MOUTH EVERY DAY 03/21 completed Not Available Not Available Not Available Vesicare 5 mg tablet Take 1 tablet every day by oral route. 05/10 completed Not Available Not Available Not Available Vicodin EVERY FOUR HOURS, NEEDED FOR PAIN 04/03 completed RECORDED 04/03/20 12 12:08PM BY GEO ESCALANTE, MEDICATI ON AUTO-AMBER CTIVATIO N; Not Available Not Available Not Available biotin active Not Available Not Availa ble Not Available intrauter ine device (IUD) 12/12 completed Not Available Not Available Not Available Vitamin D3 take 1 tablet po daily active Not Available Not Available No t Available Adderall XR (10mg) DAILY active RECORDED 11/25/19 13 4:41PM BY ANTELMO MARTINEZ MD, ANNOTATI ON/MEL DUM; Not Available Not Available Not Available desvenlaf axine succinate ER 50 mg tablet,ex tended release 24 hr Take 1 tablet every day by oral route. 08/10 completed Not Available Not Available Not Available desvenlaf axine succinate ER 100 mg tablet,ex tended release 24 hr Take 1 tablet every day by oral route for 90 days. 08/03 completed Not Available Not Available Not Available Afluria Qd 2018- (36 mos up)(PF)60 mcg (15 mcg x4)/0.5 mL IM syringe 05/02 completed Not Available Not Available Not Available BinaxNOW COVID-19 Ag Self Test kit USE DIRECTED 09/04 completed Not Available Not Available Not Available Wegovy 2.4 mg/0.75 mL subcutane ous pen injector INJECT 2.4 MG EVERY WEEK BY SUBCUTAN EOUS ROUTE FOR 28 DAYS. 2024 active Not Available Not Available Not Avai lable Wegovy 1.7 mg/0.75 mL subcutane ous pen injector Inject 1.7 mg every week by subcutan eous route for 28 days, for weight loss. 08/11 completed increase d the dose Not Available Not Available Not Available Wegovy 1 mg/0.5 mL subcutane ous pen injector Inject by subcutan eous route for 28 days. 07/14 completed Went to dose 1.7. Not Available Not Available Not Available Wegovy 0.25 mg/0.5 mL subcutane ous pen injector INJECT 0.25 MG EVERY WEEK BY SUBCUTAN EOUS ROUTE FOR 28 DAYS, FOR WEIGHT LOSS. 05/26 completed increase wd dose Not Available Not Available Not Available Wegovy 0.5 mg/0.5 mL subcutane ous pen injector Inject by subcutan eous route for 28 days. 08/11 completed increase d the dose Not Available Not Available Not Available Paxlovid 300 mg (150 mg x 2)-100 mg tablets in a dose pack TAKE 3 TABLETS BY MOUTH TWICE A DAY DIRECTED FOR 5 DAYS 01/05 completed Not Available Not Available Not Available Vitals Date Recorded Body height Body mass index (BMI) Body weight Heart rate Oxygen saturation Oxygen saturation in Arterial blood by Pulse oximetry Body temperature Systolic blood pressure Diastolic blood pressure Provider Name and Address Organization Details Last Updated DateTime 5 156.21 cm 31.6 kg/m2 97824.7 g 84 /min 99 % 99 % 98.3 [degF] 120 mm[Hg] 70 mm[Hg] Marilin Baldwin MA [facility] 5 11:24:22 Date Recorded Body height Body mass index (BMI) Body weight Heart rate Oxygen saturation Oxygen saturation in Arterial blood by Pulse oximetry Body temperature Systolic blood pressure Diastolic blood pressure Provider Name and Address Organization Details Last Updated DateTime 5 156.21 cm 32.5 kg/m2 91785.6 6 g 83 /min 99 % 99 % 98.7 [degF] 105 mm[Hg] 73 mm[Hg] Marilin Baldwin MA [facility] 5 10:22:06 Date Recorded Body height Body mass index (BMI) Body weight Heart rate Oxygen saturation Oxygen saturation in Arterial blood by Pulse oximetry Body temperature Systolic blood pressure Diastolic blood pressure Provider Name and Address Organization Details Last Updated DateTime 4 156.21 cm 35.3 kg/m2 73844.5 5 g 92 /min 97 % 97 % 98.7 [degF] 112 mm[Hg] 79 mm[Hg] Marilin Baldwin MA [facility] 4 15:53:20 Date Recorded Body height Body mass index (BMI) Body weight Heart rate Oxygen saturation Oxygen saturation in Arterial blood by Pulse oximetry Body temperature Systolic blood pressure Diastolic blood pressure Provider Name and Address Organization Details Last Updated DateTime 4 156.21 cm 35.3 kg/m2 11305.5 5 g 79 /min 98 % 98 % 98.6 [degF] 95 mm[Hg] 66 mm[Hg] Tamara sheth MA [facility] 4 15:43:42 Date Recorded Body height Body mass index (BMI) Body weight Heart rate Oxygen saturation Oxygen saturation in Arterial blood by Pulse oximetry Body temperature Systolic blood pressure Diastolic blood pressure Provider Name and Address Organization Details Last Updated DateTime 4 156.21 cm 33.6 kg/m2 64981.2 2 g 84 /min 96 % 96 % 98.3 [degF] 103 mm[Hg] 72 mm[Hg] Marilin Baldwin MA [facility] 4 15:46:03 Social History Question Answer Notes LastModified by Organizat ion Details LastModified Time Tobacco Smoking Status Never Smoker Not Available [employer] 09/12/2020 03:36:34 Do You Have An Advance Directive? Yes Information not available 09/24/2022 Is Blood Transfusion Acceptable In An Emergency? Yes [id number] Information not available 09/12/2020 What Is Your Level Of Caffeine Consumption? Moderate 1 Cup Of Coffee Daily Information not available 09/29/2024 How Much Tobacco Do You Chew? None [id number] Information not available 09/12/2020 What Type Of Diet Are You Following? REGULAR [id number] Information not available 09/12/2020 Which Illicit Or Recreational Drugs Have You Used? None [id number] Information not available 09/12/2020 Education Post Graduate Information not available 09/24/2022 Live Alone Or With Others? With Others (Sixto), Son Information not available 09/24/2022 Do You Take Precautions To Prevent Distracted Driving? Yes [email or web address] Information not available 08/03/2020 How Often Do You Need To Have Someone Help You When You Read Instructions, Pamphlets, Or Other Written Material From Your Doctor Or Pharmacy? Never [email or web address] Information not available 08/03/2015 Have You Served In The ? No [email or web address] Information not available 09/03/2016 Have You Or Anyone In Your Household Had Any Of The Following Symptoms In The Last 14 Days: Sore Throat, Cough, Chills, Body Aches For Unknown Reasons, Shortness Of Breath For Unknown Reasons, Loss Of Smell, Loss Of Taste, Fever At Or Greater Than 100 Degrees Fahrenheit? No Information not available 05/05/2020 Are You Or Anyone In Your Household A Health Care Provider Or Emergency Responder? No [email or web address] Information not available 05/05/2020 To The Best Of Your Knowledge Have You Been In Close Proximity To Any Individual Who Tested Positive For COVID-19? No [email or web address] Information not available 08/03/2020 *AWV ONLY* Are You Presently Prescribed Opioid Medication By PCP Or Specialist? If YES -Provider Assess The Benefit For Other, Non-opioid Pain Therapies Instead, Even If The Patient Does Not Have OUD But Is Possibly At Risk. No Information not available 08/08/2021 Have You Recently Traveled To A COVID-19 High Risk Area Or Gathering In The Last 10 Days? No Information not available 08/08/2021 What Was The Date Of Your Most Recent Tobacco Screening? 10/12/2024 Information not available 10/12/2024 How Many Children Do You Have? 1 Son Born 2013 [id number] Information not available 09/12/2020 Do You Use Protection During Sex? No [id number] Information not available 09/12/2020 Do You Use Your Seat Belt Or Car Seat Routinely? Yes Information not available 08/08/2021 Seat Belts Used Routinely Yes Information not available 09/24/2022 Are You Sexually Active? Yes [id number] Information not available 09/12/2020 Smoke Alarm In Home Yes Information not available 09/24/2022 Do You Have Smoke And Carbon Monoxide Detectors In Your Home? Yes Information not available 08/08/2021 At What Age Did You Start Smoking Tobacco? 2 [id number] Information not available 09/12/2020 Are You Passively Exposed To Smoke? No Information not available 08/30/2015 How Much Tobacco Do You Smoke? No [id number] Information not available 09/12/2020 Do You Use Sunscreen Routinely? No [id number] Information not available 09/12/2020 How Many Years Have You Smoked Tobacco? 0 [id number] Information not available 09/12/2020 Sex: Unknown Functional Status Question Answer Note LastModified by Organizat ion Details LastModified Time Do you use any illicit or recreational drugs? No Information not available 09/24/2022 Do you or have you ever used any other forms of tobacco or nicotine? No Information not available 09/24/2022 What is your level of alcohol consumption? Occasional [id number] Information not available 09/12/2020 Do you or have you ever used smokeless tobacco? Never used smokeless tobacco [id number] Information not available 09/12/2020 Are you currently employed? Yes [id number] Information not available 09/12/2020 Are you able to walk? YESWOREST Information not available 09/24/2022 Are you able to care for yourself? 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 Never used electronic cigarettes Information not available 09/24/2022 What is your exercise level? Moderate [id number] Information not available 09/12/2020 Mental Status None recorded. Family History Relationship Description Onset Age of this Age Resolved Age Notes LastModified by Organization Details LastModified Time Mother Hypertensive disorder 58 [email or web address] Not available 02/2024 09:10:58 Mother Intracranial aneurysm 58 [email or web address] Not available 2022 15:44:33 Mother Disease of liver 58 [email or web address] Not available 02/2024 09:11:03 Mother Sleep disorder 58 [email or web address] Not available 02/2024 09:11:07 Mother Arthritis 58 [email or web address] Not avail able 10/13/2024 09:11:29 Mother Liver problem [email or web address] Not available 2022 15:44:33 Mother Obesity [email or web address] Not available 1 15:44:33 Mother Allergy [email or web address] Not availabl e 08/03/2020 15:49:11 Mother Asthma [email or web address] Not available 15:44:33 Mother Anxiety disorder [email or web address] Not available 2020 15:42:25 Maternal Grandmother Diabetes mellitus [email or web address] Not available 09:08:05 Maternal Grandmother Heart disease [email or web address] Not available 09:08:05 Maternal Grandmother Anemia Not available 15:49:11 Maternal Grandmother Alzheimer's disease [email or web address] Not available 08/03 15:49:11 Maternal Grandmother Arthritis [email or web address] Not available 08/11 15:44:33 Maternal Grandmother Dementia [email or web address] Not available 15:49:11 Maternal Grandfather Heart disease [email or web address] Not available 2022 15:44:33 Maternal Grandfather Arthritis [email or web address] Not available 08/11 15:44:33 Father Harmful pattern of use of alcohol [email or web address] Not available 09:08:05 Father Malignant neoplasm of lung [email or web address] Not available 11/2018 16:13:47 Father Asthma [email or web address] Not available 15:44:33 Father Liver problem [email or web address] Not available 2022 15:44:33 Father Substance abuse [email or web address] Not available 2020 15:42:26 Unspecified Relation Substance abuse [email or web address] Not available 2022 15:44:33 Maternal Uncle Seizure disorder [email or web address] Not available 2022 15:44:33 Paternal Grandfather Malignant neoplasm of lung [email or web address] Not available 2022 15:44:33 Notes:Has little contact wit h her father. Medical History Condition Response Coronary Artery Disease N Other N Gout N Kidney Stones N Blood Diseases Y Hyperthyroidism N Breast Cancer N mrsa exposure N Hypothyroidism N Lung Disease N COPD N Depression Y Developmental or Behavioral Disorders N Defects or Inherited Disease N Breast Problem N Anesthesia Complications N Headaches/Migraines Y Anxiety Disorder Y Varicose Veins Y Muscle, Joint, or Bone Problems N Obesity N Vision or Eye Problems Y Arthritis N Head Injury/Concussion Y Infertility N Polyps N Mental Disorder N Congenital Anomalies N Acid Reflux (GERD) N Cancer N Stroke N ADHD N Endometriosis N High Cholesterol N Liver Disease N Fibromyalgia N Headaches N Kidney Disease N Heart Problems N Ear or Hearing Problems Y Hospitalizations N Thyroid Problems N GI Problems N Developmental Delay N Acne N Skin Problems N Eating Disorder N Anemia N Constipation N Bladder Problems Y Mental Illness N Ovarian Cancer N Diabetes N Bedwetting N Blood Transfusions N Seizures/Epilepsy N Heart Problems/Murmur N Tuberculosis N AIDS/HIV N Congestive Heart Failure (CHF) N Eczema N Diverticulitis N Abuse/Domestic Violence N Asthma Y Allergies Y Reflux/GERD N Hepatitis N Heart Disease N Pulmonary Embolism N Hypertension N Chicken Pox Y Autism Spectrum Disorder (ASD) N Osteoporosis N Gynecological History Statement/Question Response Date of Last Pap Smear 10/01/2022 Most Recent Mammogram 03/30/2025 Obstetrics History GPAL:G 0 P 0 0 0 0 Immunizations Vaccine Type Date Status Note Provider Nam e and Address Organization Details Recorded Time Influenza, split virus, quadrivalent, PF 9 completed YEN Purcell, [facility] 02/04/2022 12:46:36 COVID-19, mRNA, LNP-S, PF, 30 mcg/0.3 mL dose 1 completed YEN Purcell, [facility] 02/04/2022 12:46:36 COVID-19, mRNA, LNP-S, PF, 30 mcg/0.3 mL dose 1 completed YEN Purcell, [facility] 02/04/2022 12:46:35 COVID-19, mRNA, LNP-S, PF, 30 mcg/0.3 mL dose 1 completed YEN Purcell, [facility] 02/04/2022 12:46:35 Tdap 4 completed Not Available [facility] 11/27/2019 02:21:48 Influenza, split virus, trivalent, PF 4 completed Not Available [facility] 11/27/2019 02:21:58 Influenza, split virus, quadrivalent, PF 7 completed Not Available [facility] 11/27/2019 02:22:13 Influenza, split virus, quadrivalent, PF 8 completed Not Available [facility] 11/27/2019 02:22:17 varicella 6 completed Jess park [facility] 11/06/2021 11:12:01 Tdap 6 completed Jess park, [facility] 11/06/2021 11:12:01 Influenza, split virus, trivalent, preservative 2 completed Jess Morel xavire, [facility] 11/06/2021 11:12:01 influenza, seasonal, intradermal, preservative free 3 completed Jses park, [facility] 11/06/2021 11:12:01 Influenza, split virus, quadrivalent, PF 0 completed Rhona Good MA null, [facility] 08/03/2020 16:09:19 Influenza, split virus, quadrivalent, PF 1 completed Irene Frank MA null, [facility] 08/08/2021 16:28:21 Influenza, split virus, trivalent, PF 4 completed Antelmo Flores MD [address], [address], [facility] 10/13/2024 11:09:26 Td (adult), 2 Lf tetanus toxoid, preservative free, adsorbed 4 completed Antelmo Flores MD [address], [address], [facility] 10/13/2024 11:09:26 Past Encounters Encounter ID Performer Location Encounter Start Date Encounter Closed Date Diagnosis/Indication Diagnosis SNOMED-CT Code Diagnosis ICD10 Code Diagnosis Note [id number] Antelmo Flores MD Main Office [address] [address] 05/28/2014 08:57:32 05/28/2014 09:08:39 Administration of diphtheria, pertussis, and tetanus vaccine [id number] [facility] [address] [facility] [place] [address] 11/20/2011 00:00:00 [id number] autoEComm erce [address] [facility] [place] [address] 03/16/2012 00:00:00 [id number] [place] [address] 03/20/2012 00:00:00 [id number] [address] er[address] [place] [address] 03/23/2012 00:00:00 [id number] auto[employer] erce [address] [place] [address] 03/27/2012 00:00:00 [id number] autoEComm erce [address] [facility] [address] [place] [address] 04/14/2012 00:00:00 [id number] autoEComm erce [address] [facility] [address] [place] [address] 06/16/2012 00:00:00 [id number] auto[employer]Comm erce [address] [facility] [address] [place] [address] 09/18/2012 00:00:00 [id number] autoEComm erce [address] [facility],[address] [place] [address] 09/22/2012 00:00:00 [id number] autoEComm erce [address] [facility] [address] [place] [address] 10/27/2012 00:00:00 [id number] auto[employer]Comm erce [address] [facility] [address] [place] [address] 11/25/2012 00:00:00 [id number] autoEComm erce [address] [facility],[address] [place] [address] 04/30/2013 00:00:00 [id number] auto[employer]Comm erce [address] [facility] [address] [place] [address] 10/08/2013 00:00:00 [id number] auto[employer]Comm erce [address] [facility],[address] [place] [address] 11/01/2013 00:00:00 [id number] [facility] erce [address] [facility] [address] [place] [address] 04/13/2014 00:00:00 [id number] Antelmo Flores MD Main Office [address] [facility] [address] [place] [address] 07/25/2014 13:31:19 07/25/2014 15:02:04 Needs influenza immunization 757887030 Adult [facility] th examination 476748671 Decreased hearing 740692868 Body mass index 30+ - obesity 601419504 she recently delivered a child and is working to get back to her pre-pregna [facility]. [id number] Melissa rowan MD Main Office [address] [facility] [address] [place] [address] 11/11/2014 14:25:31 11/11/2014 15:05:03 Conjunctivitis 7775781 right eye, pt to treat both, no photophobi a, not very red but has discharge, inflammati on of lid and irritation , treat as below, warm compresses , if any worsening pt to ER and eval by eye doc [id number] LALA Grady Main Office [facility] [address] [address] [place] [address] 04/05/2015 15:30:27 04/05/2015 16:08:12 Acute sinusitis 28869598 Symptomati c treatment- lots of fluids, rest, tea with honey, OTC cough drops/ cough med as needed, humidifier , nasal sinus rinses, Tylenol or ibuprofen for fever/ pain Otitis media 20497061 Ri ght OM, will tx with doxy for sinus infection, if ear pain worsens or does not improve please call back. 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 Per US result, nodule is almost certainly benign, no further follow-up necessary . Will check thyroid blood work, if abnormal with refer to endocrinol balbir, otherwise we will monitor. [id number] LALA Grady Main Office [address] [place] [address] [place] [address] 10/25/2015 08:52:53 10/25/2015 09:52:06 Acute sinusitis 33217666 J01.90 Symptomati c treatment- lots of fluids, rest, tea with honey, OTC cough drops/ cough med as needed, humidifier , nasal sinus rinses, Tylenol or ibuprofen for fever/ pain. Take doxy x full 7 days as prescribed , call or return for worsening or concerns. [id number] Antelmo Flores MD Main Office [address] [place] [address] [place] [address] 12/04/2015 14:09:58 12/04/2015 15:05:22 Backache 450373252 M54.9 pain appears to be muscular although may be coming from her hip joint; doubt LS spine problem. Will refer to [facility]. [id number] Jimena Flores PA-C Main Office [address] [place] [address] [place] [address] 09/03/2016 15:45:49 09/03/2016 16:30:09 Adult health examination 400568625 Z00.00 Fatigue 24852181 R53.83 Body mass index 30+ - obesity 178905713 Z68.33 Mass of axilla 928185607 R22.2 small cystic mass, no recent changes or growth. If pain or change in size , pt. was recommende d to have it removed. [id number] Antelmo Flores MD Main Office [address] [place] [address] [place] [address] 08/01/2017 16:15:14 08/01/2017 16:55:00 Allergic reaction 842503696 T78.40XA Doubt infection, Lyme or gout. Appears to be an allergic reaction. Will do a trial of an antihistam ine and she will call next week if it persists. [id number] Antelmo Flores MD Main Office [address] [facility] [address] [place] [address] 10/01/2017 15:01:06 10/01/2017 15:54:55 Adult health examination 132304674 Z00.00 UTD with immunizati ons and [employer] care. Needs infl uenza immunization 569537870 Z23 Swelling o f knee joint 818467502 M25.469 Unclear etiology. Will look into derm and rheumatolo gical etiologies . 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 Not on anticoagul ation. [id number] Antelmo Flores MD Main Office [address] [place] [address] 10/30/2017 15:32:48 10/30/2017 16:11:32 Swelling of knee joint 922653160 M25.469 Unclear etiology. Will look into derm and rheumatolo gical etiologies . Migraine 03766267 G43.90 9 Possible migraines vs muscle strain. Will treat as migraines and see her back in 2 weeks. Discussed prophylaxi s and will hold off for now. [id number] Antelmo Flores MD Main Office [address] [place] [address] [place] [address] 11/19/2017 12:39:42 11/19/2017 13:39:21 Acute pharyngitis 899169334 J02.9 Migraine 79810069 G43.90 9 Dizziness 327541419 R42 It is unclear if her headaches are coming from migraines. Given her fhx of mother dying from a brain aneurysm we will look at brain pathology. [id number] Antelmo Flores MD Main Office [address] [facility] [address] [place] [address] 12/18/2017 16:26:57 12/18/2017 16:55:09 Migraine 66451166 G43.909 We discussed prophylaxi s but for now she would like to simply treat each episode. She will call if she changes her mind. 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 [id number] Antelmo Flores MD Main Office [address] [place] [address] [place] [address] 01/06/2019 11:31:58 01/06/2019 12:23:10 Fever 486844687 R50.9 will alternate ibuprofen and acetaminop hen as she has been doing. Sore throat 876243663 J0 2.9 Viral gastroenteritis 11 7543686 A08.4 OOW for the rest of the week and advised her to use OTC imodium for diarrhea. [id number] Antelmo Flores MD Main Office [address] [place] [address] [place] [address] 05/10/2019 15:38:36 05/10/2019 16:35:50 Adult health examination 105410723 Z00.00 UTD with immunizati ons and [employer] care. She had a thyroid nodule on U/S a few years ago. Will check TSH. 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 Not on anticoagul ation. [id number] Antelmo Flores MD Main Office [address] [place] [address] [place] [address] 05/02/2020 15:08:08 05/02/2020 16:19:54 Low back pain 395269887 M54.5 Reactive a irway disease 4176999380 06 J45.909 Left side sciatica 04392 39950 40807 M54.32 Long standing intermitte nt problem never seen by a specialist . [id number] Antelmo Flores MD Main Office [address] [place] [address] [place] [address] 05/05/2020 13:52:03 05/05/2020 14:23:40 Paronychia of finger 449253070 L03.011 bactrim BID x 7 days, keep finger clean and dry, may do warm epsom salt soaks or warm compresses . no dishes / laundry/ cooking without covering with gloves. call/ return for worsening sx or concerns. [id number] Antelmo Flores MD Main Office [address] [facility] [address] [place] [address] 08/03/2020 15:39:15 08/03/2020 16:36:30 Adult health examination 315483610 Z00.00 UTD with immunizati ons and [employer] care. She had a thyroid nodule on U/S a few years ago. Will check TSH. 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 Not on anticoagul ation. Major depr essive disorder 595465693 F32.1 Followed by psych and meds are being tried. [id number] Gabo Garcia MD [facility] [address] [facility] [address] [place] [place] [address] 09/05/2020 11:48:32 09/05/2020 14:21:34 Atypical chest pain 544747331 R07.89 R sided cp, radiating down RUE for past ~ 3 hrs, less intense now p pepcid, but no h/o gerd -- no evidence of costochond ritis, pt denies acute stressors this am -- no n/v or diaphoresi s, so explained do not need to go to ER immediatel y, but strongly advised her to go to local ucc this afternoon to get an ekg to r/o cardiac involvemen t - if negative and ucc cannot figure out etiology of pain, then call us back tomorrow for o.v. [id number] Antelmo Flores MD [facility] [address] [facility] [address] [place] [place] [address] 10/30/2020 13:29:51 10/30/2020 16:07:06 Lumbar radiculopathy 976745513 M54.16 She has been in touch with [facility] and is waiting for an approval from her insurance company for a steroid injection. In the meantime we will do a script for oxycodone since this helped in the past. Low back pain 672032439 M54.5 [id number] Antelmo Flores MD Main Office [address] [facility] [address] [facility] [place] [address] 08/08/2021 15:12:05 08/08/2021 16:24:32 Adult health examination 533405693 Z00.00 UTD with immunizati ons and [employer] care. She had a thyroid nodule on U/S a few years ago. Will check TSH. 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 She is currently treated with aspirin and will be started on anticoagul ation if she develops another clot. Major depr essive disorder 963293916 F32.1 Followed by psych and stable on meds. Body mass index 30+ - obesity 053004420 E66.9 Z68.34 Needs infl uenza immunization 145215984 Z23 Thyroid nodule 809866515 E04.1 Low back pain [id number] M54.5 Has had injections and has to do another round of PT before her insurance will pay for more injections . Currently taking ibuprofen prn. Other NSAIDs (relafen, meloxicam and aleve) did not help. 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 Miller Migraine [id number] G43.90 9 stable Anxiety 69415975 F41.9 stable, cont meds as dir Deep venou s thrombosis of lower extremity 094890131 I82.409 > 10 yrs ago, took coumadin/l ovenox - off BCP, no problems since, on baby asa since - see above Body mass index 30+ - obesity 861579514 Z68.34 Obesity 517381860 E66.9 [id number] [address]mo Flores MD [facility] [address] [facility] [address] [place] [address] 06/08/2022 11:36:16 06/10/2022 13:41:49 COVID-19 [id number] U07.1 Reviewed isolation protocol and can be out of isolation on Friday06/14/22. 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 She had a thyroid nodule on U/S a few years ago. Will check TSH. UTD w/COVID vaccines. Due for a flu vaccine but she will hold off because currently has nasal symptoms. Major depr essive disorder 926081706 F32.1 Followed by psych and stable on meds. Body mass index 30+ - obesity 077323563 E66.9 Z68.33 History of SARS-CoV-2 29 [id number] 25314462 Z86.16 Impacted c erumen of bilateral ears [id number] 942479 H61.23 Allergic rhinitis 134048 04 J30.9 [id number] [address] Flores MD [facility] [address] [address] [place] [address] 12/12/2022 13:24:55 12/12/2022 14:16:32 COVID-19 431984606 U07.1 Reviewed isolation protocol and can be out of isolation on Friday12/15/22. Also reviewed paxlovid SE's. This is her second time taking the med which she tolerated well the last time having only a funny taste in her month. [id number] Nilda castaneda, WEB SERVICES ARCHITECT Main Office [address] [address] [place] [address] 03/21/2023 15:45:34 03/21/2023 16:48:53 Acute conjunctivitis 45186821 H10.30 SYMPTOMS:w hich eye(s)? leftrednes s? yesdischar ge? yescrustin g or matting on waking? yesexposur e to someone with conjunctiv itis? yes POSSIBLE CONTRAINDI CATIONS TO TELEPHONE TREATMENT: eye pain? noblurry vision? norecent treatment (within 1 month)? notrauma? nolupus or rheumatoid arthritis? no PROVIDER ACTION Reviewed nursing notes?Julian mmended action Antibiotic treatment polytrim , warm compresses , treat both eyes Pain in throat 916055143 R07.0 steam, salt water gargles several times a day, otc pain reliever as needed, call if not improving OTC med if needed for congestion . If eyes not better in 2-3 days to call back [id number] Antelmo Flores MD [facility] [address] [address] [place] [address] 09/04/2023 15:04:41 09/05/2023 08:03:32 Generalized anxiety disorder 61261826 F41.1 Was seeing a psych provider and transferre d her care to here. We will continue her on the same meds. Major depr essive disorder 224606225 F32.1 Stable on current regimen. Insomnia 675951049 G47.0 0 Stable on current meds. [id number] Antelmo Flores MD Main Office [address] [address] [place] [address] 05/26/2024 15:56:46 05/26/2024 16:38:27 Morbid obesity 016980260 E66.01 BMI is 37.5. It was at it's lowest 6 years ago when it was 26.4. Flatulence symptom 48479 8004 R14.3 Advised her to try OTC simethicon e. Constipation 27639578 K5 9.00 Continue with fiber and water. 160002 Gabo Garcia MD Main Office [address] [address] [place] [address] 08/16/2024 15:45:02 08/16/2024 16:35:01 Acute otitis externa 97091764 H60.502 already rx'd at [facility] c clinda - no sig helpwill treat c topical abx/steroi dsalso, rec prn warm compress to help drain clogged LNs & f/u c ent to possibly adjust size of earpiece of hearing aides [id number] Antelmo Flores MD Main Office [address] [facility] [address] [place] [address] 09/29/2024 15:25:49 09/29/2024 15:54:29 Impacted cerumen in left ear [id number] 573490 H61.22 -recently completed antibiotic drops for AOE>sympto ms of pain resolved, now experienci ng fullness sensation and muffled hearing-on PE; cerumen impaction to the left ear-will provide debrox drops as the cerumen appears hard and is close to the TM-discuss ed proper usage and will have pt contact office for ear lavage if needed [id number] Antelmo Flores MD Main Office [address] [facility] [address] [place] [address] 10/12/2024 15:37:42 10/12/2024 16:41:36 Adult health examination 695740538 Z00.00 Had the initial COVID series and 1 booster.Wi ll get a flu and a tetanus vaccine today.UTD w/mammogra m done in March 2024.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 Needs infl uenza immunization 675370038 Z23 19 YEARS AND OLDER ONLY Requires a tetanus booster 944946588 Z23 Body mass index 30+ - obesity 033584124 E66.9 Z68.33 Losing weight on wegovy at max dose. 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 She is currently treated with aspirin and will be started on anticoagul ation if she develops another clot. Major depr essive disorder 390965510 F32.1 Stable on current regimen. Followed by a mental health provider. Deep venou s thrombosis of lower extremity 826161578 I82.409 Historical . Has a factor 5 Leiden def and is currently taking aspirin daily. [id number] Antelmo Flores MD Main Office [address] [facility] [address] [place] [address] 12/14/2024 10:53:06 12/14/2024 11:48:06 Herpes zoster 5896953 B02.9 [id number] Antelmo Flores MD Main Office [address] [place] [address] 12/23/2024 10:12:55 12/23/2024 11:22:02 Skin lesion 46177967 L98.9 These appear to be herpetic especially given the pain around the side but since they are not improving and her pain is also outside of the dermatome I will refer her to derm for further evaluation and possible bx. Anterior c hest wall pain 717233995 R07.89 Could be related to previous shingles with distant neuralgia which is rare but possible. 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 Will order an MRI to r/o MS given her sensory changes in different extrenitie s over time, fatigue and trouble focusing at times. Health Concerns Section Related Observation LastModified by Organization Detai ls LastModified Time None Recorded Concern Status LastModified by Organization Details LastModified Time None Recorded Advance Directives Directive Y: Payers Insurance Date Sequence Insurance Name Policy Number Policy Carcamo Covered Member ID Carcamo Member ID Guarantor Name 01/04/2025 1 [facility] Deepa Patel [id number] Deepa Patel Notes Date Note Type Note Provider Name and Address Organization Details Recorded Time 08/16/2024 text/html ear and head galina n *see PT case* *PT aware to covid test prior to appt and wear a maskNEG COVID TEST pt states 3 wks ago had jaw pain - seen at [facility] - no note to review - gave clindamycin 300mg tid x 1 wk - jaw pain better, but now radiating to L ear no pur nasal dc, f/c, cough, sob, STalso used motrin c little help + wears hearing aides B José Manuel Flores PA-C [address] [address], [place], [address], [facility] 08/16/2024 17:39:57 09/29/2024 text/html Deepa is a 44yr old F who presents for left ear fullness. Reports she was recently treated for AOE, notes that the ear pain has resolved and is now experiencing muffled hearing and ear fullness. Denies of any other associated symptoms. [employer] [address] [address], [place], [address], [facility] 09/29/2024 15:56:58 12/14/2024 text/html She was seen at [facility] 4 days ago for RLQ abdominal pain. She had a normal CT scan and an US of her right ovary which was essentially benign. 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 She denies n/v or bowel changes. No f/c. Her lab work (urine and blood) was normal. The pain is mainly superficial and on her skin. She did not have a rash when seen in the ER but developed a rash in the right abdomen and right side 2 days ago. The pain goes from the right lower abdomen around the side and into her back. Antelmo Flores MD [address], [address], [facility] 12/14/2024 11:55:38 12/23/2024 text/html She continues to have pain at the site of her rash but also is having pain and discomfort across her chest and back. She has no rash in these areas. She gets little help from OTC meds. The skin lesions at her right side have not resolved and she has no new lesions. She does not have exertional chest discomfort. She has a h/o neuropathy involving different extremities at different times. She c/o numbness and tingling but denies any weakness. The symptoms often last for a few days. She denies any known fhx of MS. In addition she has fatigue and often times has difficulty focusing. Antelmo Flores MD [address] [address], [place], [address], [facility] 01/03/2025 13:01:49 OBGyn Episode No OBEpisode recorded.
[2025-04-29 17:38] LABS: Lyme Abs Screen <0.90 index
== END 2025-04-28 11:35 | disposition home or self-care (01) ==
LOC: HO.LAB 11:34
PROVIDERS: PCP Internal Medicine; Visit Provider Psychiatry & Neurology Neurology
DX: R20.2 Paresthesia of skin (principal)
CPT/HCPCS: 36415; 86617; 86618

== ENCOUNTER 2025-06-08 13:07 | Outpatient (AMB) | payer OTHER, SELFPAY ==
--- NOTE | 2025-06-08 13:21 | A.OFFVIS_ITS ---
Intake Visit Reasons: Results Allergies amoxicillin (From Augmentin) Allergy (Unknown, Verified 06/02/25 08:54) Unknown clavulanic acid (From Augmentin) Allergy (Unknown, Verified 06/02/25 08:54) Unknown HPI Comments Details: 45 yo woman, initially seen in April of 2025 for paresthesias of unknown cause. With h/o depression and anxiety she was here for pain in different areas of her body. This started happening around 2023 without any prior injury or infection. IT was burning tingling type pain that may affect her left or the right torso, or the legs, in a small area. Last year, it was on the right thoracic area like a band from back to front. She was given gabapentin, which helped. 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 Each time, the pain lasted for a few days. Her Lyme test was negative. Apparently her insurance has not covered MRI of brain. She had another episode of left leg numbness lasting for couple of weeks. It was painful and numb. No back pain or headaches bladder function was okay. Energy level was normal. Mood was okay. [facility] Medical History (Updated 06/08/25 @ 13:28 by Mario Pierre MD) Paresthesia Review of Systems Const Details: Again complain of uncomfortable feeling in left leg. No bowel bladder diffic ulty. Energy level is okay. Mood is okay. Physical Exam Neuro Other: Mental Status: Alert and oriented to person, place, and time. Normal attention. Normal spontaneous speech, fluency, and comprehension. No obvious issues with mood and memory. Affect is appropriate. Cranial Nerves: CN II: Visual rivera full to confrontation, visual acuity intact. CN III, IV, : Pupils equal, round, reactive to light and accommodation. Extraocular movements are normal. CN V: Facial sensation is normal. CN VII: Facial movements symmetrical. CN VIII: Hearing intact to bedside conversation is normal. CN IX, X: Palate elevates symmetrically. CN XI: Shoulder shrug and head turn symmetrical. CN XII: Tongue midline without atrophy or fasciculations. Motor: Bulk and tone normal in all extremities. No significant muscle weakness in arms and legs. No drift. Reflexes: Deep tendon reflexes 2+ and symmetric. Plantar response down-going bilaterally. Coordination: Zvvras-rr-xloq and odic-bf-rxvq testing normal. No dysmetria. Gait and Station: No obvious gait abnormality. No ataxia or instability. Extrapyramidal: Full facial expressions and blinking. No rigidity. Movements are appropriate with no tremor or abnormality. Speech: Normal; no dysarthria or tremor. Assessment & Plan Assessment & Plan (1) Demyelinating disease: Code(s): G37.9 - Demyelinating disease of central nervous system, unspecified Category: Medical Plan Impression recommendations: 45 years old woman with numbness and uncomfortable feeling, paresthesias, in different areas of body of unknown cause. Last episode was recent affecting left leg and lasted for couple of weeks. Examination was nonfocal. Lyme serology was negative. There was no back pain or headache or bowel bladder difficulty. Demyelinating disease of central nervous system was a possibility, which could present sometime in this fashion. An MRI of brain for screen is recommended. Orders: Orders MR head/brain wo/w con Today G37.9 - Demyelinating disease of central nervous system, unspecified Coding Level of Care Code Est Pt Level 4 (20179) Diagnoses Demyelinating disease G37.9
== END 2025-06-08 13:31 | disposition home or self-care (01) ==
LOC: HO.HSM 13:08
PROVIDERS: PCP Internal Medicine; Visit Provider Psychiatry & Neurology Neurology
DX: G37.9 Demyelinating disease of central nervous system, unspecified (principal)
CPT/HCPCS: 99214

== ENCOUNTER 2025-06-21 10:14 | Outpatient (REF) | payer OTHER, SELFPAY ==
--- NOTE | ~2025-06-21 | MR_ITS ---
EXAMINATION: MR BRAIN WITHOUT AND WITH CONTRAST CLINICAL INFORMATION: Demyelinating disease of the central nervous system. COMPARISON: None available. TECHNIQUE: Multiplanar, multisequence MRI of the brain was obtained before and after the intravenous administration of 7.5 mL gadolinium based (Gadavist) without reported immediate complications.. FINDINGS: No restricted diffusion. No abnormal enhancement within the intra-axial or the extra-axial compartment of the cranium. There are a few, bilateral, scattered, less than 3 mm, nonspecific hyperintense T2 FLAIR signal within the subcortical deep white matter of the frontal lobes. Sellar/suprasellar region demonstrated no gross signal abnormality or masses. Posterior cranial fossa contents demonstrated no signal abnormality or enhancing lesion. Normal position of the cerebellar tonsils. Flow-void signal within the main cerebral vessels is normal. No abnormal enhancement within the intraconal or extraconal compartments of the orbits. Mucosal thickening paranasal sinuses. MR/MR head/brain wo/w con IMPRESSION: No abnormal enhancement. No acute stroke or acute brain abnormality. Nonspecific T2 FLAIR signal foci supratentorial compartment. This could be seen patients with migraines. Electronically signed by: Robin Thomas MD 06/21/2025 11:27 AM EDT
== END 2025-06-21 10:15 | disposition home or self-care (01) ==
LOC: HO.MRI 10:14
PROVIDERS: PCP Internal Medicine; Visit Provider Psychiatry & Neurology Neurology
DX: G37.9 Demyelinating disease of central nervous system, unspecified (principal)
CPT/HCPCS: 70553; A9585

== ENCOUNTER → 2025-06-21 10:22 | Outpatient (BNV) | payer OTHER, SELFPAY | PROVIDERS: PCP Internal Medicine; Visit Provider Radiology Diagnostic Radiology | DX: G37.9 Demyelinating disease of central nervous system, unspecified (principal) | CPT/HCPCS: 70553 ==

== ENCOUNTER 2025-09-05 15:40 | Outpatient (AMB) | payer OTHER, SELFPAY ==
--- NOTE | 2025-09-05 15:43 | MHC.OFFVIS ---
Intake Visit Reasons: f/u after MRI Allergies amoxicillin (From Augmentin) Allergy (Unknown, Verified 06/02/25 08:54) Unknown clavulanic acid (From Augmentin) Allergy (Unknown, Verified 06/02/25 08:54) Unknown HPI Comments Details: 45 years old woman with numbness and uncomfortable feeling, paresthesias, in different areas of body of unknown cause. Last episode was recent affecting left leg and lasted for couple of weeks. Examination was nonfocal. Lyme serology was negative. There was no back pain or headache or bowel bladder difficulty. She is presenting with concerns regarding both the recent findings of nonspecific white matter abnormalities and her history of migraines. She initially reported migraine episodes that occurred sporadically over seven to eight years ago and were linked to lighting conditions at her workplace. Adjustments in workspace lighting led to a reduction in headache frequency. During a recent evaluation, a brain MRI indicated white matter lesions. These findings are interpreted as nonspecific and not necessarily indicative of progressive disease, a concern for the patient. The patient denies frequent migraines at present but reported occasional paresthesia in various parts of the body. Neurological evaluations and blood tests, including a negative VDRL test, were normal with no indication of systemic lupus erythematosus, although she has no recollection of being specifically tested for it. [facility] Medical History (Updated 09/05/25 @ 15:51 by Mario Pierre MD) Paresthesia Review of Systems Narrative - Neurological: Reports intermittent paresthesia. Denies frequent headaches or migraines. - General: Denies any current symptoms. Physical Exam Neuro Other: Mental Status: Alert and oriented to person, place, and time. Normal attention. Normal spontaneous speech, fluency, and comprehension. No obvious issues with mood and memory. Affect is appropriate. Cranial Nerves: CN II: Visual rivera full to confrontation, visual acuity intact. CN III, IV, : Pupils equal, round, reactive to light and accommodation. Extraocular movements are normal. CN V: Facial sensation is normal. CN VII: Facial movements symmetrical. CN VIII: Hearing intact to bedside conversation is normal. CN IX, X: Palate elevates symmetrically. CN XI: Shoulder shrug and head turn symmetrical. CN XII: Tongue midline without atrophy or fasciculations. Extrapyramidal: Full facial expressions and blinking. No rigidity. Movements are appropriate with no tremor or abnormality. Speech: Normal; no dysarthria or tremor. Assessment & Plan Assessment & Plan (1) Migraine: Code(s): G43.909 - Migraine, unspecified, not intractable, without status migrainosus Category: Medical Qualifiers: Migraine type: without aura Status migrainosus presence: without status migrainosus Intractability: not intractable Qualified Code(s): G43.009 - Migraine without aura, not intractable, without status migrainosus (2) White matter abnormality on MRI of brain: Code(s): R90.82 - White matter disease, unspecified Category: Medical (3) Demyelinating disease: Code(s): G37.9 - Demyelinating disease of central nervous system, unspecified Category: Medical Plan Impression recommendations: 45 years old woman with paresthesias and rare migraine type of headaches. MRI revealed few small lesions on FLAIR sequence, which were nonspecific and can and even from migraine. At this time none of those raised any concerned. My advice to her was to follow-up clinically and probably have another brain MRI in a year time, or earlier if needed. Orders: Orders Anti DNA DS Antibody Today R90.82 - White matter disease, unspecified NAJMA Reflex Titer and Pattern Today R90.82 - White matter disease, unspecified Coding Level of Care Code Est Pt Level 4 (47569) Diagnoses Migraine without aura and without status migrainosus, not intractable G43.009 Migraine type: without aura Status migrainosus presence: without status migrainosus Intractability: not intractable White matter abnormality on MRI of brain R90.82 Demyelinating disease G37.9
--- OUTSIDE RECORDS SUMMARY | 2025-09-05 18:44 | XMS_ITS | Data Portability ---
Author Organization [facility], Main Office Address [address] [place] [address] Care Team Providers Care Juvenile Probation Officer Name Role Phone ANTELMO FLORES Primary Care Provider MARIA ANTONIA LOREDO House Registry Rn MILES WILLIAM Plastic/Reconstructive Surgeon TAMAR CORRIGAN Care Information Associate JES HANSON Orthopedic Surgeon [phone] [facility] Referring Provider [facility] Phys. Med. & Rehab [facility] UROLOGY Urologist [phone] EVELYN MORE Referring Provider [phone] EMILE THOMAS Referring Provider [phone] Assessment No assessment recorded. Plan of Treatment Reminders Order Date Submit Date Provider Last Modified By Organization Details Last Modified Time Details Appointments PE EST 2024 03:45P M Antelmo trinh MD Not available Not available Not available Lab CMP, serum or plasma 2024 025 [facility] (Centralized Electronic Ordering - All Locations), Patient Can Go To The Location Of Their Choice, [id number] 05/05/2025 08:07:13 lipase , serum or plasma 2024 025 [facility] (Centralized Electronic Ordering - All Locations), Patient Can Go To The Location Of Their Choice, [address] 05/05/2025 08:07:13 inflam mation panel, serum or plasma 2024 025 [facility] (Centralized Electronic Ordering - All Locations), Patient Can Go To The Location Of Their Choice, [address] 12/24/2024 06:08:28 lipid panel, serum 2023 024 [place] [facility] ([facility]ized [facility] Ordering - All Locations), Patient Can Go To The Location Of Their Choice, [address] 11/07/2024 08:06:35 CMP, serum or plasma 2023 024 [place] [facility] (Centralized Electronic Ordering - All Locations), Patient Can Go To The Location Of Their Choice, [address] 11/07/2024 08:06:35 CBC w/ auto diff 2023 024 [place] [facility] (Centralized Electronic Ordering - All Locations), Patient Can Go To The Location Of Their Choice, [id number] 11/07/2024 08:06:34 Referral dermat ologis t referr al - Painfu l skin lesion s at right side. 2024 025 [email or web address] [facility], [facility] [facility], [address], [place], [address], 01/22/2025 08:56:51 Procedures None record ed. Surgeries None record ed. Imaging XR, chest, 2 view - Left-s ided chest pain. R/o lesion 2024 025 [facility] ([facility]), [address] [facility], [place], [address], 12/24/2024 16:52:51 electr ocardi ogram 2024 025 [email or web address] In-Office Order, Internal Use Only DO Not Attach Compendium DO Not Attach Compendium, Do Not Delete/merge, [id number] 12/23/2024 11:22:02 Medication Orders Zepbou nd 10 mg/0.5 mL subcut aneous soluti on 2024 025 [place] [id number], [address] [place] [address], [place], [address], 08/02/2025 15:48:07 gabape ntin 300 mg capsul e 2024 025 [facility], [address] [place], [address], 05/04/2025 09:55:23 valacy clovir 1 gram tablet 2024 025 [facility], [address] [place], [address], 05/04/2025 09:56:13 oxycod one-ac etamin ophen 5 mg-325 mg tablet 2024 025 [facility], [address] [place], [address], 05/04/2025 09:55:37 Patient TargetsNo targets recorded. Patient Instructions Encounter Date Encounter Id Patient Instructions Last Modified By Organization Details Last Modified Time 12/14/2024 [id number] shingles: care instructions [email or web address] Not available 12/14/2024 11:41:34 At [facility] follow up visit, all current and discharge medications (OTC, herbal therapies, supplements) reviewed and reconciled with patient and or caregiver, including potential side effects, drug interactions, instructions, and the consequences of not taking medication. Reviewed potential barriers to medication adherence, such as side effects from medication or cost of medication. Not available 12/14/2024 11:01:42 12/23/2024 [id number] skin lesions: care instructions acennerazzo Not available 12/23/2024 10:46:20 05/04/2025 [id number] nausea and vomiting: care instructions acennerazzo Not available 05/04/2025 12:42:44 body mass index: care instructions acennerazzo Not available 05/04/2025 10:17:01 learning about healthy weight acennerazzo Not available 05/04/2025 10:17:01 08/02/2025 [id number] body mass index: care instructions acennerazzo Not available 08/02/2025 16:55:32 learning about healthy weight acennerazzo Not available 08/02/2025 16:55:32 Reason for Referral Care Information Associate Referral for S kin lesion Painful skin lesions at right side. Referring Physician: Antelmo Flores, Family Medicine, Encounter Date: 12/23/2024 Results Created Date Observation Date Name Description Value Unit Range Abnormal Flag Note LastModifiedBy Organization Detail LastModifiedTime 11/06/20 24 11/07/2024 CBC WITH DIFFE RENTI AL/PL ATELE T WBC 9.8 x10e3 /uL 3.4-10 .8 normal Not Available [facility] ([facility]) [address], [place], [address], 11/07/2024 08:06:34 11/06/20 24 11/07/2024 CBC WITH DIFFE RENTI AL/PL ATELE T RBC 4.82 x10e6 /uL 3.77-5 .28 normal Not Available [facility] ([facility]) [address] [place], [address], 11/07/2024 08:06:34 11/06/20 24 11/07/2024 CBC WITH DIFFE RENTI AL/PL ATELE T hemoglobin 14.5 g/dL 11.1-1 5.9 normal Not Available [facility] ([facility]) [address] [place], [address], 11/07/2024 08:06:34 11/06/20 24 11/07/2024 CBC WITH DIFFE RENTI AL/PL ATELE T hematocrit 44.5 % 34.0-4 6.6 normal Not Available [facility] ([facility]) [address] [place], [address], 11/07/2024 08:06:34 11/06/20 24 11/07/2024 CBC WITH DIFFE RENTI AL/PL ATELE T MCV 92 fL 79-97 normal Not Available [facility] ([facility]) [address] [place], [address], 11/07/2024 08:06:34 11/06/20 24 11/07/2024 CBC WITH DIFFE RENTI AL/PL ATELE T MCH 30.1 pg 26.6-3 3.0 normal Not Available [facility] ([facility]) [address], [place], [address], 11/07/2024 08:06:34 11/06/20 24 11/07/2024 CBC WITH DIFFE RENTI AL/PL ATELE T MCHC 32.6 g/dL 31.5-3 5.7 normal Not Available [facility] ([facility]) [address], [place], [address], 11/07/2024 08:06:34 11/06/20 24 11/07/2024 CBC WITH DIFFE RENTI AL/PL ATELE T RDW 12.9 % 11.7-1 5.4 Not Available [facility] ([facility]) [address], [place], [address], 11/07/2024 08:06:34 11/06/20 24 11/07/2024 CBC WITH DIFFE RENTI AL/PL ATELE T platelets 369 x10e3 /uL 150-45 0 normal Not Available [facility] ([facility]) [address], [place], [address], 11/07/2024 08:06:34 11/06/20 24 11/07/2024 CBC WITH DIFFE RENTI AL/PL ATELE T neutrophils 54 % not estab. normal Not Available [facility] ([facility]) [address], [place], [address], 11/07/2024 08:06:34 11/06/20 24 11/07/2024 CBC WITH DIFFE RENTI AL/PL ATELE T lymphs 32 % not estab. normal Not Available [facility] ([facility]) [address], [place], [address], 11/07/2024 08:06:34 11/06/20 24 11/07/2024 CBC WITH DIFFE RENTI AL/PL ATELE T monocytes 8 % not estab. normal Not Available [facility] ([facility]) [address], [place], [address], 11/07/2024 08:06:34 11/06/20 24 11/07/2024 CBC WITH DIFFE RENTI AL/PL ATELE T eos 5 % not estab. normal Not Available [facility] ([facility]) [address], [place], [address], 11/07/2024 08:06:34 11/06/20 24 11/07/2024 CBC WITH DIFFE RENTI AL/PL ATELE T basos 1 % not estab. 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 0 normal Not Available [facility] ([facility]) [address] [place], [address], 11/07/2024 08:06:34 11/06/20 24 11/07/2024 CBC WITH DIFFE RENTI AL/PL ATELE T lymphs (absolute) 3.2 x10e3 /uL 0.7-3. 1 above high normal Not Available [facility] ([facility]) [address] [place], [address], 11/07/2024 08:06:34 11/06/20 24 11/07/2024 CBC WITH DIFFE RENTI AL/PL ATELE T monocytes(ab solute) 0.8 x10e3 /uL 0.1-0. 9 normal Not Available [facility] ([facility]) [address], [place], [address], 11/07/2024 08:06:34 11/06/20 24 11/07/2024 CBC WITH DIFFE RENTI AL/PL ATELE T eos (absolute) 0.5 x10e3 /uL 0.0-0. 4 above high normal Not Available [facility] ([facility]) [address], [place], [address], 11/07/2024 08:06:34 11/06/20 24 11/07/2024 CBC WITH DIFFE RENTI AL/PL ATELE T baso (absolute) 0.1 x10e3 /uL 0.0-0. 2 normal Not Available [facility] ([facility]) [address], [place], [address], 11/07/2024 08:06:34 11/06/20 24 11/07/2024 CBC WITH DIFFE RENTI AL/PL ATELE T immature granulocytes 0 % not estab. Not Available [facility] ([facility]) [address], [place], [address], 11/07/2024 08:06:34 11/06/20 24 11/07/2024 CBC WITH DIFFE RENTI AL/PL ATELE T immature grans (abs) 0.0 x10e3 /uL 0.0-0. 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 METAB OLIC PANEL (14) glucose 82 mg/dL 70-99 normal Not Available [facility] ([facility]) [address] [place], [address], 11/07/2024 08:06:35 11/06/20 24 11/07/2024 COMP. METAB OLIC PANEL (14) BUN 10 mg/dL 6-24 normal Not Available [facility] ([facility]) [address], [place], [address], 11/07/2024 08:06:35 11/06/20 24 11/07/2024 COMP. METAB OLIC PANEL (14) creatinine 0.82 mg/dL 0.57-1 .00 normal Not Available [facility] ([facility]) [address], [place], [address], 11/07/2024 08:06:35 11/06/20 24 11/07/2024 COMP. METAB OLIC PANEL (14) eGFR 92 mL/mi n/1.7 3 >59 normal Not Available [facility] ([facility]) [address], [place], [address], 11/07/2024 08:06:35 11/06/20 24 11/07/2024 COMP. METAB OLIC PANEL (14) BUN/creatini ne ratio 12 9-23 normal Not Available [facility] ([facility]) [address] [place], [address], 11/07/2024 08:06:35 11/06/20 24 11/07/2024 COMP. METAB OLIC PANEL (14) sodium 138 mmol/ L 134-14 4 normal Not Available [facility] ([facility]) [address] [place], [address], 11/07/2024 08:06:35 11/06/20 24 11/07/2024 COMP. METAB OLIC PANEL (14) potassium 4.4 mmol/ L 3.5-5. 2 normal Not Available [facility] ([facility]) [address] [place], [address], 11/07/2024 08:06:35 11/06/20 24 11/07/2024 COMP. METAB OLIC PANEL (14) chloride 101 mmol/ L 96-106 normal Not Available [facility] ([facility]) [address] [place], [address], 11/07/2024 08:06:35 11/06/20 24 11/07/2024 COMP. METAB OLIC PANEL (14) carbon dioxide, total 26 mmol/ L 20-29 normal Not Available [facility] ([facility]) [address] [place], [address], 11/07/2024 08:06:35 11/06/20 24 11/07/2024 COMP. METAB OLIC PANEL (14) calcium 9.8 mg/dL 8.7-10 .2 normal Not Available [facility] ([facility]) [address] [place], [address], 11/07/2024 08:06:35 11/06/20 24 11/07/2024 COMP. METAB OLIC PANEL (14) protein, total 6.5 g/dL 6.0-8. 5 normal Not Available [facility] ([facility]) [address] [place], [address], 11/07/2024 08:06:35 11/06/20 24 11/07/2024 COMP. METAB OLIC PANEL (14) albumin 4.3 g/dL 3.9-4. 9 normal Not Available [facility] ([facility]) [address] [place], [address], 11/07/2024 08:06:35 11/06/20 24 11/07/2024 COMP. METAB OLIC PANEL (14) globulin, total 2.2 g/dL 1.5-4. 5 Not Available [facility] ([facility]) [address] [place], [address], 11/07/2024 08:06:35 11/06/20 24 11/07/2024 COMP. METAB OLIC PANEL (14) bilirubin, total 0.4 mg/dL 0.0-1. 2 normal Not Available [facility] ([facility]) [address] [place], [address], 11/07/2024 08:06:35 11/06/20 24 11/07/2024 COMP. METAB OLIC PANEL (14) alkaline phosphatase 62 IU/L 44-121 normal Not Available [facility] ([facility]) [address] [place], [address], 11/07/2024 08:06:35 11/06/20 24 11/07/2024 COMP. METAB OLIC PANEL (14) AST (SGOT) 17 IU/L 0-40 normal Not Available [facility] ([facility]) [address] [place], [address], 11/07/2024 08:06:35 11/06/20 24 11/07/2024 COMP. METAB OLIC PANEL (14) ALT (SGPT) 18 IU/L 0-32 normal Not Available [facility] ([facility]) [address] [place], [address], 11/07/2024 08:06:35 11/06/20 24 11/07/2024 LIPID PANEL cholesterol, total 175 mg/dL 100-19 9 normal Not Available [facility] ([facility]) [address] [place], [address], 11/07/2024 08:06:35 11/06/20 24 11/07/2024 LIPID PANEL triglyceride s 141 mg/dL 0-149 normal Not Available [facility] ([facility]) [address] [place], [address], 11/07/2024 08:06:35 11/06/20 24 11/07/2024 LIPID PANEL HDL cholesterol 53 mg/dL >39 normal Not Available [facility] ([facility]) [address] [place], [address], 11/07/2024 08:06:35 11/06/20 24 11/07/2024 LIPID PANEL VLDL cholesterol susana 25 mg/dL 5-40 Not Available [facility] ([facility]) [address] [place], [address], 11/07/2024 08:06:35 11/06/20 24 11/07/2024 LIPID PANEL LDL chol calc ([facility]) 97 mg/dL 0-99 Not Available [facility] ([facility]) [address] [place], [address], 11/07/2024 08:06:35 11/06/20 24 11/07/2024 LIPID PANEL 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 METAB OLIC PANEL (14) glucose 83 mg/dL 70-99 normal Not Available [facility] ([facility]) [address] [place], [address], 05/05/2025 08:07:13 05/04/20 25 05/05/2025 COMP. METAB OLIC PANEL (14) BUN 8 mg/dL 6-24 normal Not Available [facility] ([facility]) [address] [place], [address], 05/05/2025 08:07:13 05/04/20 25 05/05/2025 COMP. METAB OLIC PANEL (14) creatinine 0.89 mg/dL 0.57-1 .00 normal Not Available [facility] ([facility]) [address] [place], [address], 05/05/2025 08:07:13 05/04/20 25 05/05/2025 COMP. METAB OLIC PANEL (14) eGFR 82 mL/mi n/1.7 3 >59 normal Not Available [facility] ([facility]) [address] [place], [address], 05/05/2025 08:07:13 05/04/20 25 05/05/2025 COMP. METAB OLIC PANEL (14) BUN/creatini ne ratio 9 9-23 normal Not Available [facility] ([facility]) [address] [place], [address], 05/05/2025 08:07:13 05/04/20 25 05/05/2025 COMP. METAB OLIC PANEL (14) sodium 138 mmol/ L 134-14 4 normal Not Available [facility] ([facility]) [address] [place], [address], 05/05/2025 08:07:13 05/04/20 25 05/05/2025 COMP. METAB OLIC PANEL (14) potassium 4.8 mmol/ L 3.5-5. 2 normal Not Available [facility] ([facility]) [address] [place], [address], 05/05/2025 08:07:13 05/04/20 25 05/05/2025 COMP. METAB OLIC PANEL (14) chloride 103 mmol/ L 96-106 normal Not Available [facility] ([facility]) [address] [place], [address], 05/05/2025 08:07:13 05/04/20 25 05/05/2025 COMP. METAB OLIC PANEL (14) carbon dioxide, total 19 mmol/ L 20-29 below low normal Not Available [facility] ([facility]) [address] [place], [address], 05/05/2025 08:07:13 05/04/20 25 05/05/2025 COMP. METAB OLIC PANEL (14) calcium 9.6 mg/dL 8.7-10 .2 normal Not Available [facility] ([facility]) [address] [place], [address], 05/05/2025 08:07:13 05/04/20 25 05/05/2025 COMP. METAB OLIC PANEL (14) protein, total 7.0 g/dL 6.0-8. 5 normal Not Available [facility] ([facility]) [address] [place], [address], 05/05/2025 08:07:13 05/04/20 25 05/05/2025 COMP. METAB OLIC PANEL (14) albumin 4.5 g/dL 3.9-4. 9 normal Not Available [facility] ([facility]) [address] [place], [address], 05/05/2025 08:07:13 05/04/20 25 05/05/2025 COMP. METAB OLIC PANEL (14) globulin, total 2.5 g/dL 1.5-4. 5 Not Available [facility] ([facility]) [address] [place], [address], 05/05/2025 08:07:13 05/04/20 25 05/05/2025 COMP. METAB OLIC PANEL (14) bilirubin, total 0.3 mg/dL 0.0-1. 2 normal Not Available [facility] ([facility]) [address] [place], [address], 05/05/2025 08:07:13 05/04/20 25 05/05/2025 COMP. METAB OLIC PANEL (14) alkaline phosphatase 70 IU/L 44-121 normal Not Available [facility] ([facility]) [address] [place], [address], 05/05/2025 08:07:13 05/04/20 25 05/05/2025 COMP. METAB OLIC PANEL (14) AST (SGOT) 19 IU/L 0-40 normal Not Available [facility] ([facility]) [address] [place], [address], 05/05/2025 08:07:13 05/04/20 25 05/05/2025 COMP. METAB OLIC PANEL (14) ALT (SGPT) 15 IU/L 0-32 normal Not Available [facility] ([facility]) [address] [place], [address], 05/05/2025 08:07:13 05/04/20 25 05/05/2025 LIPAS E lipase 41 U/L 14-72 normal Not Available [facility] ([facility]) [address] [place], [address], 05/05/2025 08:07:13 12/23/19 25 12/23/2024 elect rocar diogr am No observ ation record ed. [email or web address] In-Office Order Internal Use Only DO Not Attach Compendium DO Not Attach Compendium, Do Not Delete/merge, [id number] 12/23/2024 12:56:19 12/23/19 jason chiu am No observ ation record ed. jose In-Office Order Internal Use Only DO Not Attach Compendium DO Not Attach Compendium, Do Not Delete/merge, [id number] 12/24/2024 08:21:27 12/24/19 25 12/24/2024 XR, chest [...] acute cardio pulmon claude diseas e. WSN: [id number] Orderi ng Physic kassie: Antelmo Barajas Dictat ed By: Dannielle Martinez MD Dictat ed Date/T whitney: 4:49 pm Review ed By: Dannielle Martinez MD Signed By: Dannielle Martinez MD Signed Date/T whitney: 4:49 pm Transc ribed By: ADAN Transc ribed Date/T whitney: 4:49 pm Patien t Class: Outpat ient [facility] (Outpt Imaging) [address] [place], [address], 12/25/2024 13:13:49 04/01/20 25 03/30/2025 MAMMO , scree gustavo, digit al, bilat eral No observ ation record ed. [email or web address] [facility] [address], [place], [address], 04/05/2025 13:37:00 Result Notes Documentation Provider Name [...] There is no acute cardiopulmonary disease. WSN: [id number] Ordering Physician: Antelmo Flores Dictated By: Dannielle Dhaliwal MD Dictated Date/Time: 12/24/24 4:49 pm Reviewed By: Dannielle Dhaliwal MD Signed By: Dannielle Dhaliwal MD Signed Date/Time: 12/24/24 4:49 pm Transcribed By: CSMaykel Transcribed Date/Time: 12/24/24 4:49 pm Patient Class: Outpatient Antelmo Flores MD [address] [address], [place], [address], [facility] 12/25/2024 08:15:53 Problems Name Problem SNOMED Code Status Onset Date Resolution Date Notes Provider Name and Address Organization Details Recorded Time Factor V deficien cy 8800589 Active Not Available [facility] 09:53:05 Decrease d hearing 478006773 Active Not Available [facility] 09:53:05 Conjunct ivitis 2764946 Completed 08/03/2015 Antelmo Flores MD [address] [facility], [place], [address] , [facility] 6 17:34:35 Jose Antonio n 0949556 Active Not Available [facility] 09:53:05 Acute conjunct ivitis 04093043 Completed 10/01/2017 [place], [facility] 7 15:09:52 Acute sinusiti s 36338992 Completed 09/05/2020 YEN Mayes, [facility] 0 12:55:37 Otitis media 12605513 Active Not Available [facility] 09:53:05 Computed tomograp hy result abnormal 539806820 Active Not Available [facility] 09:53:05 Thyroid nodule 965109098 Active Not Available [facility] 09:53:05 Migraine 70667683 Active Followed by Dr Quintero Not Available [facility] 09:53:05 Backache 020719705 Active Not Available [facility] 09:53:05 Low back pain 158794869 Active seen at [facility] and improved with injectio ns Not Available [facility] 09:53:05 Malaise and fatigue 008481995 Completed 10/01/2017 [place], [facility] 7 15:09:29 Administ ration of bacteria l and viral vaccine Completed 201105/24/2014 RECORDED 11/18/19 12 12:58PM BY MAE CODYIC AL SUMMARY Antelmo Flores MD [address] [address], [place], [address] , [facility] 6 17:34:35 Varicell a vaccinat ion Completed 201105/24/2014 RECORDED 11/18/19 12 12:58PM BY MAE CODYIC AL SUMMARY Antelmo Flores MD [address] [facility] [address], [place], [address] , [facility] 6 17:34:35 Administ ration of bacteria l and viral vaccine Completed 201106/20/2014 RECORDED 11/18/19 12 12:58PM BY MAE CODYIC AL SUMMARY Antelmo Flores MD [address] [facility] [address], [place], [address] , [facility] 6 17:34:35 Varicell a vaccinat ion Completed 201106/20/2014 RECORDED 11/18/19 12 12:58PM BY MAE CODYIC AL SUMMARY Antelmo Flores MD [address] [facility] [address], [place], [address] , [facility] 6 17:34:35 Intrinsi c asthma [id number] Completed 201105/24/2014 RECORDED 06/16/20 12 12:59PM BY ULISSES MUNOZ ON/MEL Flores MD [address] [facility] [address], [place] [place], [address] , [facility] 6 17:34:35 History of depressi on [id number] Completed 201105/24/2014 RECORDED 06/16/20 12 12:59PM BY ULISSES MUNOZ ON/MEL Flores MD [address] [facility] [address], [place], [address] , [facility] 6 17:34:35 Dizzines s and giddines s 168074091 Completed 201105/24/2014 RECORDED 06/16/20 12 12:59PM BY ULISSES MUNOZ ON/MEL Flores MD [address] [facility] [address], [place], [address] , [facility] 6 17:34:35 Pain in limb 21228832 Completed 201105/24/2014 IMPRESSI ON: NEED TO R/O DVT. IT IS ALMOST 5PM. PHYSICAL EXAM IS CONVINCI NG FOR DVT SO NEED TO R/O URGENTLY PT SENT TO ER.; RECORDED 06/16/20 12 12:59PM BY ULISSES MUNOZ ON/MEL Flores MD [address] [facility] [address], [place], [address] , [facility] 6 17:34:35 Abnormal ity of systemic vein Completed 201105/24/2014 RECORDED 06/16/20 12 12:59PM BY ULISSES MUNOZ ON/MEL Flores MD [address] [facility] [address], [place], [address] , [facility] 6 17:34:35 Intrinsi c asthma 866261762 Completed 201106/20/2014 RECORDED 06/16/20 12 12:59PM BY ULISSES MUNOZ ON/MEL Flores MD [address] [facility] [address], [place], [address] , [facility] 6 17:34:35 History of depressi on 916705274 Completed 201106/20/2014 RECORDED 06/16/20 12 12:59PM BY ULISSES MUNOZ ON/MEL Flores MD [address] [facility] [address], [place], [address] , [facility] 6 17:34:35 Dizzines s and giddines s 223725804 Completed 201106/20/2014 RECORDED 06/16/20 12 12:59PM BY ULISSES MUNOZ ON/MEL Flores MD [address] [facility] [address], [place], [address] , [facility] 6 17:34:35 Pain in limb 31318363 Completed 201106/20/2014 IMPRESSI ON: NEED TO R/O DVT. IT IS ALMOST 5PM. PHYSICAL EXAM IS CONVINCI NG FOR DVT SO NEED TO R/O URGENTLY PT SENT TO ER.; RECORDED 06/16/20 12 12:59PM BY ULISSES MUNOZ ON/MEL Flores MD [address] [facility] [address], [place], [address] , [facility] 6 17:34:35 Abnormal ity of systemic vein Completed 201106/20/2014 RECORDED 06/16/20 12 12:59PM BY ULISSES MUNOZ ON/MEL Flores MD [address] [address], [place], [address] , [facility] 6 17:34:35 Diarrhea 18793337 Completed 201105/24/2014 IMPRESSI ON: SXS NOW X [...] BY ULISSES MUNOZ ON/MEL Flores MD [address] [address], [place], [address] , [facility] 6 17:34:35 Malaise and fatigue 573598904 Completed 201105/24/2014 RECORDED 10/27/20 12 1:22PM BY ULISSES MUNOZ ON/MEL Tello MA [facility] 7 15:09:29 Noninfec tious gastroen teritis [id number] Completed 201105/24/2014 IMPRESSI ON: DAY THREE, NOW WITH DIARRHEA ONLY. NO FEVERS, TOLERATI NG PO WELL. ADVISED RE CITLALY CE OF ORAL REHYDRAT ION, BRAT DIET. CALL FOR WORSENIN G/PRN. TO ER FOR S/SXS OF DEHYDRAT ION WHICH WERE DISCUSSE D WITH PT AND . ; RECORDED 10/27/20 12 1:22PM BY ULISSES MUNOZ ON/MEL Flores MD [address] [facility] [address], [place], [address] , [facility] 6 17:34:35 Diarrhea [id number] Completed 201106/20/2014 IMPRESSI ON: SXS NOW X [...] BY ULISSES MUNOZ ON/MEL Flores MD [address] [address], [place], [address] , [facility] 6 17:34:35 Malaise and fatigue 761306264 Completed 201106/20/2014 RECORDED 10/27/20 12 1:22PM BY ULISSES MUNOZ ON/MEL Tello MA [facility] 7 15:09:29 Noninfec tious gastroen teritis 79814666 Completed 201106/20/2014 IMPRESSI ON: DAY THREE, NOW WITH DIARRHEA ONLY. NO FEVERS, TOLERATI NG PO WELL. ADVISED RE IMPORTAN CE OF ORAL REHYDRAT ION, BRAT DIET. CALL FOR WORSENIN G/PRN. TO ER FOR S/SXS OF DEHYDRAT ION WHICH WERE DISCUSSE D WITH PT AND . ; RECORDED 10/27/20 12 1:22PM BY ULISSES MUNOZ ON/MEL Flores MD [address] [address], [place], [address] , [facility] 6 17:34:35 Acute pharyngi tis [id number] Completed 201205/24/2014 IMPRESSI ON: ADVISED HER TO TAKE 800 MG IBUPROFE N. NO ABX NEEDED. WILL SEND FOR CX.; RECORDED 11/25/19 13 3:56PM BY ULISSES MUNOZ ON/MEL Flores MD [address] [address], [place], [address] , [facility] 6 17:34:35 Influenz a vaccine needed [id number] 06 Completed 201205/24/2014 RECORDED 11/25/19 13 4:08PM BY CHARI LIVINGSTON I, OFFICE VISIT Antelmo Flores MD [address] [facility] [address], [place], [address] , [facility] 6 17:34:35 Streptoc occal sore throat 57559921 Completed 201205/24/2014 RECORDED 11/25/19 13 3:56PM BY CHARI LIVINGSTON I, NISHIATI ON/ADDEN DUM Antelmo Flores MD [address] [facility] [address], [place], [address] , [facility] 6 17:34:35 Acute pharyngi tis 710509987 Completed 201206/20/2014 IMPRESSI ON: ADVISED HER TO TAKE 800 MG IBUPROFE N. NO ABX NEEDED. WILL SEND FOR CX.; RECORDED 11/25/19 13 3:56PM BY CHARI LIVINGSTON I, NISHIATI ON/ADDEN DUM Antelmo Flores MD [address] [facility] [address], [place], [address] , [facility] 6 17:34:35 Influenz a vaccine needed [id number] 06 Completed 201206/20/2014 RECORDED 11/25/19 13 4:08PM BY CHARI LIVINGSTON I, OFFICE VISIT Antelmo Flores MD [address] [facility] [address], [place], [address] , [facility] 6 17:34:35 Streptoc occal sore throat 43309191 Completed 201206/20/2014 RECORDED 11/25/19 13 3:56PM BY NISHI MUNOZATI ON/ADDEN DUM Antelmo Flores MD [address] [facility] [address], [place], [address] , [facility] 6 17:34:35 Adult health examinat ion Completed 201205/24/2014 RECORDED 04/30/20 13 10:31AM BY ULISSES MUNOZ ON/MEL Flores MD [address] [facility] [address], [place], [address] , [facility] 6 17:34:35 Retentio n of urine [id number] Completed 201205/24/2014 IMPRESSI ON: GIVEN THE FACT THAT THIS HAS BEEN GOING ON FOR YEARS IT IS PROBABLY A SIDE EFFECT OF THE STRATERR A WHICH SHE HAS BEEN ON FOR THE SAME AMOUNT OF TIME.; RECORDED 04/30/20 13 10:31AM BY ULISSES MUNOZ ON/MEL Flores MD [address] [facility] [address], [place], [address] , [facility] 6 17:34:35 Adult health examinat ion Completed 201206/20/2014 RECORDED 04/30/20 13 10:31AM BY ULISSES MUNOZ ON/MEL Flores MD [address] [facility] [address], [place], [address] , [facility] 6 17:34:35 Retentio n of urine [id number] Completed 201206/20/2014 IMPRESSI ON: GIVEN THE FACT THAT THIS HAS BEEN GOING ON FOR YEARS IT IS PROBABLY A SIDE EFFECT OF THE STRATERR A WHICH SHE HAS BEEN ON FOR THE SAME AMOUNT OF TIME.; RECORDED 04/30/20 13 10:31AM BY ULISSES MUNOZ ON/MEL Flores MD [address] [facility] [address], [place], [address] , [facility] 6 17:34:35 Acute asthma 747643412 Completed 201205/24/2014 IMPRESSI ON: ADVAIR FOR THE WEEK TO GET SXS UNDER CONTROL. ; RECORDED 10/08/20 13 1:39PM BY JAMESON DOBSON MA, ULISSES ON/ADDJOHN PAUL Flores MD [address] [facility] [address], [place], [address] , [facility] 6 17:34:35 Screenin g for malignan t neoplasm of cervix Completed 201205/24/2014 RECORDED 10/08/20 13 1:39PM BY JAMESON DOBSON MA, ANNOTATI ON/ADDJOHN PAUL Flores MD [address] [facility] [address], [place], [address] , [facility] 6 17:34:35 Acute sinusiti s 21710049 Completed 201205/24/2014 IMPRESSI ON: GIVE IT 4 MORE DAYS BEFORE STARTING ABX. DO FLONASE AND SUDAFED; RECORDED 10/08/20 13 1:39PM BY JAMESON DOBSON MA, ANNOTATI ON/MEL DUM [facility]ara [facility] 0 12:55:38 Acute asthma 884111664 Completed 201206/20/2014 IMPRESSI ON: ADVAIR FOR THE WEEK TO GET SXS UNDER CONTROL. ; RECORDED 10/08/20 13 1:39PM BY JAMESON DOBSON MA, ANNOTATI ON/MEL Flores MD [address] [facility] [address], [place], [address] , [facility] 6 17:34:35 Screenin g for malignan t neoplasm of cervix Completed 201206/20/2014 RECORDED 10/08/20 13 1:39PM BY JAMESON DOBSON MA, ANNOTATI ON/MEL Flores MD [address] [facility] [address], [place], [address] , [facility] 6 17:34:35 Acute sinusiti s 16143096 Completed 201206/20/2014 IMPRESSI ON: GIVE IT 4 MORE DAYS BEFORE STARTING ABX. DO FLONASE AND SUDAFED; RECORDED 10/08/20 13 1:39PM BY JAMESON DOBSON MA, ANNOTATI ON/ADDEN DUM Tamara tineo MA [facility], [facility] 0 12:55:38 Patient status finding [id number] Completed 201205/24/2014 RECORDED 11/01/20 13 1:48PM BY ULISSES MUNOZ ON/ADDEN RHINA Flores MD [address], [place], [address] , [facility] 6 17:34:35 Phlebiti s and thrombop hlebitis Completed 201205/24/2014 RECORDED 11/01/20 13 1:48PM BY ULISSES MUNOZ ON/MEL Flores MD [address], [place], [address] , [facility] 6 17:34:35 Disorder of skin and/or subcutan eous tissue 14879986 Active 2012 Not Available [facility] 1 09:53:05 Patient status finding 221405924 Completed 201206/20/2014 RECORDED 11/01/20 13 1:48PM BY ULISSES MUNOZ ON/MEL Flores MD [address], [place], [address] , [facility] 6 17:34:35 Phlebiti s and thrombop hlebitis Completed 201206/20/2014 RECORDED 11/01/20 13 1:48PM BY ULISSES MUNOZ ON/MEL Flores MD [address], [place], [address] , [facility] 6 17:34:35 Blood coagulat ion disorder 28330634 Completed 201307/25/2014 RECORDED 04/13/20 14 3:53PM BY YARA العراقي MA, OFFICE VISIT Antelmo Flores MD [address] [facility] [address], [place], [address] , [facility] 6 17:34:35 Cataplex y and narcolep sy 141563186 Active 2013 Not Available [facility] 1 09:53:05 Disorder of skin and/or subcutan eous tissue 10188291 Completed 201306/20/2014 IMPRESSI ON: POSSIBLE URTICARI A OF UNCLEAR ETIOLOGY ; WILL TREAT WITH ANTI-HIS TAMINE AND DO A REFERRAL FOR A DERMATOL OGIST.; RECORDED 04/13/20 14 11:46AM BY YARA العراقي MA, NISHIATI ON/ADDJOHN PAUL tineo MA [facility], [facility] 0 12:55:43 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 718892488 Active 2013 Not Available [facility] 1 09:53:05 Patient status finding [id number] Completed 201307/25/2014 RECORDED 04/21/20 14 8:39AM BY ULISSES MUNOZ ON/MEL Flores MD [address] [facility] [address], [place], [address] , [facility] 6 17:34:35 Acute upper respirat ory infectio n 09642878 Completed 201306/20/2014 IMPRESSI ON: SINUS RINSE ALSO IF NOT IMPROVIN G IN 1 WEEK CALL THE OFFICE.; RECORDED 04/21/20 14 8:38AM BY ULISSES MUNOZ ON/MEL Flores MD [address] [facility] [address], [place], [address] , [facility] 6 17:34:35 Ptosis of eyelid 46660377 Active 2014 Upper lid; followed by Dr William Not Available [facility] 1 09:53:05 Epidermo id cyst 721428007 Active 2016 Right axilla; drained by derm Not Available [facility] 1 09:53:05 Bilatera l knee pain Completed 201610/01/2017 [place], [facility] 7 15:09:37 Swelling of knee joint 330808195 Active 2016 Not Available [facility] 1 09:53:05 Pain of wrist region 35677832 Active 2017 Not Available [facility] 1 09:53:05 Herniati on of lumbar interver tebral disc with sciatica 37168417713 4105 Active 2020 Herniati on at L5-S1. 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 Schedule d for microdis cectomy. Antelmo Flores MD [address] [facility] [address], [place], [address] , [facility] 2 08:33:40 Obesity 083139847 Active 2021 [place], [facility] 2 09:59:23 History of SARS-CoV -2 74354520591 8093517 Active 2021 Antelmo Flores MD [address] [facility] [address], [place], [address] , [facility] 2 15:44:46 Overacti ve urinary bladder 509156910 Active 2021 Followed by urology and stable on meds. Antelmo Flores MD [address] [facility] [address], [place], [address] , [facility] 2 11:08:55 COVID-19 368173495 Completed 202209/29/2024 YEN Mayes, [facility] 4 15:35:54 Generali zed anxiety disorder 64955664 Active 2022 Antelmo Flores MD [address], [place], [address] , [facility] 3 16:20:05 Insomnia 281330094 Active 2022 Antelmo Flores MD [address], [place], [address] , [facility] 3 16:20:14 Major depressi ve disorder 912869283 Active 2022 Antelmo Flores MD [address], [place], [address] , [facility] 3 16:20:24 Morbid obesity 746191704 Completed 202310/13/2024 Removal Reason: resolved on weight loss meds Antelmo Flores MD [address], [place], [address] , [facility] 4 11:11:15 Body mass index 30+ - obesity 352945570 Active 2023 Gabo Garcia MD [address], [place], [address] , [facility] 4 17:03:55 Problem Notes None recorded. Procedures Surgical History Date Name Laterality Status Provider Name and Address Organization Details Recorded Time 025 Most Recent Mammogram completed Anne Lance [facility] 04/05/2025 13:36:57 025 Mammogram screening completed Anne Lance [facility] 04/05/2025 13:34:57 024 Mammogram both breasts completed Patsy Nugent [facility] 03/31/2024 13:05:10 022 Date of Last Pap Smear completed Karen Martinez [facility] 10/13/2024 10:08:55 022 laminectomy completed Justyna Peñaloza RN [facility] 01/17/2022 09:42:38 021 injection completed Jess Morel [facility] 06/01/2021 14:49:17 021 injection of facet joint completed Jess Morel [facility] 01/03/2021 09:37:39 019 electromyography completed Jess Morel [facility] 06/25/2019 09:04:23 017 Other completed Antelmo Flores MD [address] [facility] [address] [facility], [place], [address], [facility] 05/10/2019 16:16:20 016 Eye Surgery completed Jess Morel [facility] 11/14/2016 11:09:40 016 injection of cortisone completed Tamara evans MA [facility] 09/29/2024 15:38:27 014 Caesarean Section completed Chari Damon [facility] 07/25/2014 13:57:02 011 Rhinoplasty completed Antelmo Flores MD [address] [facility], [place], [address], [facility] 05/10/2019 16:17:15 005 Cholecystectomy completed Antelmo Flores MD [address] [facility], [place], [address], [facility] 07/25/2014 14:09:39 005 Colonoscopy completed Rhona Good MA [facility] 08/03/2020 15:49:35 990 Tonsillectomy completed Antelmo Flores MD [address] [place] [address], [address], [facility] 05/10/2019 16:17:52 987 Tonsillectomy completed Rhona Good MA [facility] 08/03/2020 15:49:35 987 Adenoidectomy completed Rhona Good MA [facility] 08/03/2020 15:49:35 Imaging Results None recorded. Procedure Notes None recorded. Medical Equipment None Reported. Allergies Allergen ID Allergen Name Allergen Category Reaction Reaction Severity Criticality Documentation Date Start Date Code Code System Note Provider Name and Address Organization Details Recorded Time 16277 Augmentin medicatio n Not available Not available Not available 08/03/2020 73066 2 RxNorm [facility] 0 15:49:05 3867 Product containin g penicilli n (product) medicatio n rash Not available Not available 05/24/2014 90145 8001 SNOMED Yamilet [place], [facility] [address] [facility] [address], [place], [address], [facility] 5 15:59:51 Medications Name Sig Start Date [...] MOUTH EVERY 12 HOURS FOR 5 DAYS 05/04 completed Not Available Not Available Not Available sumatript an 100 mg tablet take [...] completed Not Available Not Available Not Available prazosin 1 mg capsule 1 CAP BY MOUTH NIGHTLY NEEDED FOR SLEEP, NIGHTMAR ES 08/02 completed Not Available Not Available Not Available [...] Available clobetaso l 0.05 % topical cream 05/04 completed Not Available Not Available Not Available Advair [...] TWICE A DAY NEEDED FOR 7 DAYS 05/04 completed Not Available Not Available Not Available lorazepam 0.5 mg tablet Take 1 tablet every day by oral route for 10 days. 09/24 completed Not Available Not Available Not Available trazodone 100 mg tablet TAKE 1 TABLET BY MOUTH NIGHTLY NEEDED FOR SLEEP active Not Available Not Available No t Available benzonata te 100 mg capsule TAKE 1 CAPSULE BY MOUTH THREE TIMES A DAY FOR COUGH 05/04 completed Not Available Not Available Not Available erythromy lalo 5 mg/gram (0.5 %) eye ointment 09/03 completed Not Available Not Available Not Available nortripty line 10 mg capsule 05/10 completed Not Available Not Available Not Available buspirone 30 mg tablet 1 bid 08/01 completed Not Available Not Available Not Available buspirone 10 mg tablet TAKE 2 TABLETS BY MOUTH THREE A DAY active Not Available Not Available No t Available polymyxin B sulfate 10,000 unit-trim ethoprim 1 mg/mL eye drops INSTILL 1 DROP BY OPHTHALM IC ROUTE 4 TIMES A DAY FOR 7 DAYS 09/04 completed Not Available Not Available Not Available warfarin 5 mg tablet QD PER INR RESULTS 11/25 completed RECORDED 11/25/19 13 4:41PM BY ANTELMO MARTINEZ MD, ANNOTATI ON/ADDEN DUM; Not Available Not Available Not Available fluoxetin e 10 mg capsule Take 1 capsule every day by oral route. 10/01 completed Not Available Not Available Not Available gabapenti n 300 mg capsule Take 1 capsule 3 times a day by oral route for 30 days. 05/04 completed Not Available Not Available Not Available buspirone 7.5 mg tablet 05/02 completed [...] N; Not Available Not Available Not Available mirtazapi ne 15 mg tablet TAKE 1 TABLET BY MOUTH EVERY DAY AT NIGHT active Not Available Not Available No t Available lorazepam 1 mg tablet active Not [...] ne propionat e 50 mcg/actua tion nasal spray,rubina pension INHALE 2 SPRAYS INTO EACH NOSTRIL ONCE DAILY DIRECTED 05/26 completed Not Available Not Available Not Available sertralin e 50 mg tablet Take 1 tablet every day by oral route for 30 days. 09/05 completed Not Available Not Available Not Available buspirone 15 mg tablet TAKE 1 TABLET BY MOUTH TWICE A DAY 05/04 completed Not Available Not Available Not Available neomycin- polymyxin -hydrocor t 3.5 mg-10,000 unit/mL-1 % ear drops,rubina p PLEASE SEE ATTACHED FOR DETAILED DIRECTIO NS 09/29 completed Not Available Not Available Not Available enoxapari n 80 mg/0.8 mL subcutane ous syringe TWO TIMES DAILY 03/30 completed RECORDED 03/30/20 12 10:52AM BY GEO ESCALANTE, MEDICATI ON AUTO-AMBER CTIVATIO N; Not Available Not Available Not Available enoxapari n 100 mg/mL subcutane ous syringe active RECORDED 04/07/20 12 4:11PM BY JOSE CATHERINE, ANNOTATI ON/ADDEN DUM; Not Available Not Available [...] TABLET BY MOUTH EVERY DAY AT NIGHT 08/02 completed Not Available Not Available Not Available solifenac in 10 mg tablet TAKE [...] 13 4:41PM BY ANTELMO MARTINEZ MD, ANNOTATI ON/ADDEN DUM; [...] completed Not Available Not Available Not Available Probiotic active Not Available Not Davina ilable Not Available Afluria Qd 2018- (36 mos [...] completed Not Available Not Available Not Available Zepbound 10 mg/0.5 mL subcutane ous pen injector INJECT 0.5 ML SUBCUTAN EOUSLY ONE TIME PER WEEK FOR 28 DAYS active Not Available Not Available No t Available Zepbound 10 mg/0.5 mL subcutane ous solution Inject 0.5 mL every week by subcutan eous route for 28 days. 08/02 completed PA APPROVED FOR 05/05/25 - 6 Not Available Not Available Not Available Vitals Date Recorded Body height Body mass index (BMI) Body weight Heart rate Oxygen saturation Oxygen saturation in Arterial blood by Pulse oximetry Body temperature Systolic And Diastolic Provider Name and Address Organization Details Last Updated DateTime 5 156.21 cm 31.6 kg/m2 13408.7 g 84 /min 99 % 99 % 98.3 [degF] 120/70 mm[Hg] Marilin Baldwin MA [facility] 5 11:24:22 Date Recorded Body height Body mass index (BMI) Body weight Heart rate Oxygen saturation Oxygen saturation in Arterial blood by Pulse oximetry Body temperature Systolic And Diastolic Provider Name and Address Organization Details Last Updated DateTime 5 156.21 cm 32.5 kg/m2 92933.6 6 g 83 /min 99 % 99 % 98.7 [degF] 105/73 mm[Hg] Marilin Baldwin MA [facility] 5 10:22:06 Date Recorded Body height Body mass index (BMI) Body weight Heart rate Oxygen saturation Oxygen saturation in Arterial blood by Pulse oximetry Body temperature Systolic And Diastolic Provider Name and Address Organization Details Last Updated DateTime 5 156.21 cm 31.2 kg/m2 58914.5 2 g 91 /min 99 % 99 % 98.7 [degF] 107/70 mm[Hg] Marilin Baldwin MA [facility] 5 09:54:30 Date Recorded Body height Body mass index (BMI) Body weight Heart rate Oxygen saturation Oxygen saturation in Arterial blood by Pulse oximetry Body temperature Systolic And Diastolic Provider Name and Address Organization Details Last Updated DateTime 5 156.21 cm 32.7 kg/m2 37108.2 6 g 77 /min 98 % 98 % 98.5 [degF] 107/74 mm[Hg] Marilin Baldwin MA [facility] 5 15:46:46 Date Recorded Body height Body mass index (BMI) Body weight Heart rate Oxygen saturation Oxygen saturation in Arterial blood by Pulse oximetry Body temperature Systolic And Diastolic Provider Name and Address Organization Details Last Updated DateTime 4 156.21 cm 33.6 kg/m2 08711.2 2 g 84 /min 96 % 96 % 98.3 [degF] 103/72 mm[Hg] Marilin Baldwin MA [facility] 4 15:46:03 Social History Question Answer Notes LastModified by Organizat ion Details LastModified Time Tobacco Smoking Status Never Smoker Not Available [employer] 09/12/2020 03:36:34 Do You Have An Advance Directive? Yes Information not available 09/24/2022 Is Blood Transfusion Acceptable In An Emergency? Yes [id number] Information not available 09/12/2020 What Is Your Level Of Caffeine Consumption? Moderate 1 Cup Of Coffee Daily Information not available 09/29/2024 How Much Tobacco Do You Chew? None [id number] Information not available 09/12/2020 What Type Of Diet Are You Following? REGULAR [id number] Information not available 09/12/2020 Which Illicit Or Recreational Drugs Have You Used? None [id number] Information not available 09/12/2020 Education Post Graduate Information not available 09/24/2022 Live Alone Or With Others? With Others (Sixto), Son Information not available 09/24/2022 Do You Take Precautions To Prevent Distracted Driving? Yes [email or web address] Information not available 08/03/2020 How Often Do You Need To Have Someone Help You When You Read Instructions, Pamphlets, Or Other Written Material From Your Doctor Or Pharmacy? Never [email or web address] Information not available 08/03/2015 Have You Served In The ? No [email or web address] Information not available 09/03/2016 Have You Or Anyone In Your Household Had Any Of The Following Symptoms In The Last 14 Days: Sore Throat, Cough, Chills, Body Aches For Unknown Reasons, Shortness Of Breath For Unknown Reasons, Loss Of Smell, Loss Of Taste, Fever At Or Greater Than 100 Degrees Fahrenheit? No [email or web address] Information not available 05/05/2020 Are You Or Anyone In Your Household A Health Care Provider Or Emergency Responder? No [email or web address] Information not available 05/05/2020 To The Best Of Your Knowledge Have You Been In Close Proximity To Any Individual Who Tested Positive For COVID-19? No [email or web address] Information not available 08/03/2020 *AWV ONLY* Are [...] Do You Have? 1 Son Born 2013 [id number] Information not available 09/12/2020 Do You Use Protection During Sex? No [id number] Information not available 09/12/2020 Do You Use Your Seat Belt Or Car Seat Routinely? Yes Information not available 08/08/2021 Seat Belts Used Routinely Yes Information not available 09/24/2022 Are You Sexually Active? Yes [id number] Information not available 09/12/2020 Smoke Alarm In Home Yes Information not available 09/24/2022 Do You Have Smoke And Carbon Monoxide Detectors In Your Home? Yes Information not available 08/08/2021 At What Age Did You Start Smoking Tobacco? 2 [id number] Information not available 09/12/2020 Are You Passively Exposed To Smoke? No Information not available 08/30/2015 How Much Tobacco Do You Smoke? No [id number] Information not available 09/12/2020 Do You Use Sunscreen Routinely? No [id number] Information not available 09/12/2020 How Many Years Have You Smoked Tobacco? 0 [id number] Information not available 09/12/2020 Sex: Unknown Functional Status Question Answer Note LastModified by Organizat ion Details LastModified Time Do you use any illicit or recreational drugs? No Information not available 09/24/2022 Do you or have you ever used any other forms of tobacco or nicotine? No Information not available 09/24/2022 What is your level of alcohol consumption? Occasional [id number] Information not available 09/12/2020 Do you or have you ever used smokeless tobacco? Never used smokeless tobacco [id number] Information not available 09/12/2020 Are you currently employed? Yes [id number] Information not available 09/12/2020 Are you able to walk independently without assistance or assistive devices? [email or web address] Information not available 09/24/2022 Are you able to care for yourself independently? 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 Never used electronic cigarettes Information not available 09/24/2022 What is your exercise level? Moderate [id number] Information not available 09/12/2020 Mental Status None [...] [email or web address] Not available 1 15:44:33 Mother Allergy [email or web address] Not availabl e 08/03/2020 15:49:11 Mother Asthma [email or web address] Not available 15:44:33 Mother Anxiety disorder [email or web address] Not available 2020 15:42:25 Maternal Grandmother Diabetes mellitus [email or web address] Not available 09:08:05 Maternal Grandmother Heart disease [email or web address] Not available 09:08:05 Maternal Grandmother Anemia [email or web address] Not available 15:49:11 Maternal Grandmother Alzheimer's disease Not available 08/03 15:49:11 Maternal Grandmother Arthritis [email or web address] Not available 08/11 15:44:33 Maternal Grandmother Dementia Not available 15:49:11 Maternal Grandfather Heart disease [email or web address] Not available 2022 15:44:33 Maternal Grandfather Arthritis [email or web address] Not available 08/11 15:44:33 Father Harmful pattern of use of alcohol [email or web address] Not available 09:08:05 Father Malignant neoplasm of lung [email or web address] Not available 0711/2018 16:13:47 Father Asthma [email or web address] Not available 15:44:33 Father Liver problem [email or web address] Not available 2022 15:44:33 Father Substance abuse [email or web address] Not available 2020 15:42:26 Unspecified Relation Substance abuse [email or web address] Not available 2022 15:44:33 Maternal Uncle Seizure disorder [email or web address] Not available 2022 15:44:33 Paternal Grandfather Malignant neoplasm of lung [email or web address] Not available 2022 15:44:33 Notes:Has little contact wit h her father. Medical History Condition Response Coronary Artery Disease N Gout N Other N Blood Diseases Y Kidney Stones N Hyperthyroidism N Breast Cancer N mrsa exposure N Lung Disease N Hypothyroidism N Depression Y COPD N Defects or Inherited Disease N Developmental or Behavioral Disorders N Breast Problem N Anesthesia Complications N Headaches/Migraines Y Varicose Veins Y Anxiety Disorder Y Muscle, Joint, or Bone Problems N Obesity N Vision or Eye Problems Y Arthritis N Head Injury/Concussion Y Infertility N Polyps N Mental Disorder N Congenital Anomalies N Acid Reflux (GERD) N Cancer N Stroke N ADHD N Endometriosis N High Cholesterol N Liver Disease N Headaches N Fibromyalgia N Kidney Disease N Heart Problems N Ear or Hearing Problems Y Hospitalizations N Thyroid Problems N GI Problems N Developmental Delay N Acne N Eating Disorder N Skin Problems N Anemia N Constipation N Bladder Problems Y Mental Illness N Diabetes N Ovarian Cancer N Bedwetting N Blood Transfusions N Heart Problems/Murmur N Seizures/Epilepsy N Tuberculosis N AIDS/HIV N Congestive Heart Failure (CHF) N Eczema N Abuse/Domestic Violence N Diverticulitis N Asthma Y Allergies Y Reflux/GERD N [...] virus, quadrivalent, PF 9 completed YEN Purcell, [facility] 02/04/2022 12:46:36 COVID-19, mRNA, LNP-S, PF, 30 mcg/0.3 mL dose 1 completed YEN Purcell, [facility] 02/04/2022 12:46:36 COVID-19, mRNA, LNP-S, PF, 30 mcg/0.3 mL dose 1 completed YEN Purcell [facility] 02/04/2022 12:46:35 COVID-19, mRNA, LNP-S, PF, 30 mcg/0.3 mL dose 1 completed YEN Purcell, [facility] 02/04/2022 12:46:35 Tdap 4 completed Not Available [facility] 11/27/2019 02:21:48 Influenza, split virus, trivalent, PF 4 completed Not Available [facility] 11/27/2019 02:21:58 Influenza, split virus, quadrivalent, PF 7 completed Not Available [facility] 11/27/2019 02:22:13 Influenza, split virus, quadrivalent, PF 8 completed Not Available [facility] 11/27/2019 02:22:17 varicella 6 completed Jess Morel null, [facility] 11/06/2021 11:12:01 Tdap 6 completed Jess Morel null, [facility] 11/06/2021 11:12:01 Influenza, split virus, trivalent, preservative 2 completed Jess Morel null, [facility] 11/06/2021 11:12:01 influenza, seasonal, intradermal, preservative free 3 completed Jess Morel null, [facility] 11/06/2021 11:12:01 Influenza, split virus, quadrivalent, PF 0 completed Rhona Good MA null, [facility] 08/03/2020 16:09:19 Influenza, split virus, quadrivalent, PF 1 completed Irene Frank MA null, [facility] 08/08/2021 16:28:21 Influenza, split virus, trivalent, PF 4 completed Antelmo Flores MD [address], [address], [facility] 10/13/2024 11:09:26 Td (adult), 2 Lf tetanus toxoid, preservative free, adsorbed 4 completed Antelmo Flores MD [address], [address], [facility] 10/13/2024 11:09:26 Influenza, split virus, trivalent, PF 5 completed YEN Puri [facility] 08/02/2025 15:48:32 Past Encounters Encounter ID Performer Location Encounter Start Date Encounter Closed Date Diagnosis/Indication Diagnosis SNOMED-CT Code Diagnosis ICD10 Code Diagnosis IMO Codes Diagnosis Note [id number] Antelmo Flores MD Main Office [address] [place] [address] 05/28/2014 08:57:32 05/28/2014 09:08:39 Administration of diphtheria, pertussis, and tetanus vaccine [id number] auto[employer] erce [address] [facility] [place] [address] 11/20/2011 00:00:00 [id number] autoEComm erce [address] [facility] [place] [address] 03/16/2012 00:00:00 [id number] autoEComm erce [address] [facility] [place] [address] 03/20/2012 00:00:00 [id number] autoEComm erce [address] [facility] [place] [address] 03/23/2012 00:00:00 [id number] autoEComm erce [address] [facility] [place] [address] 03/27/2012 00:00:00 [id number] autoEComm erce [address] [facility] [place] [address] 04/14/2012 00:00:00 [id number] autoEComm erce [address] [facility] [place] [address] 06/16/2012 00:00:00 [id number] autoEComm erce [address] [facility] [place] [address] 09/18/2012 00:00:00 [id number] autoEComm erce [address] [facility] [place] [address] 09/22/2012 00:00:00 [id number] autoEComm erce [address] [facility] [place] [address] 10/27/2012 00:00:00 [id number] autoEComm erce [address] [facility] [address] [place] [address] 11/25/2012 00:00:00 [id number] autoEComm erce [address] [facility] [place] [address] 04/30/2013 00:00:00 [id number] autoEComm erce [address] [facility] [place] [address] 10/08/2013 00:00:00 [id number] autoEComm erce [address] [facility] [place] [address] 11/01/2013 00:00:00 [id number] autoEComm erce [address] [facility] [place] [address] 04/13/2014 00:00:00 [id number] Antelmo Flores MD Main Office [address] [address] [place] [address] 07/25/2014 13:31:19 07/25/2014 15:02:04 Needs influenza immunization 028701285 Adult heal th examination 071464988 Decreased hearing 723556485 Body mass index 30+ - obesity 676162918 she recently delivered a child and is working to get back to her pre-pregna [facility]. [id number] Melissa rowan MD Main Office [address] [address] [place] [address] 11/11/2014 14:25:31 11/11/2014 15:05:03 Conjunctivitis [id number] right eye, pt to treat both, no photophobi a, not very red but has discharge, inflammati on of lid and irritation , treat as below, warm compresses , if any worsening pt to ER and eval by eye doc [id number] LALA Grady Main Office [address] [address] [place] [address] 04/05/2015 15:30:27 04/05/2015 16:08:12 Acute sinusitis 14163832 Symptomati c treatment- lots of fluids, rest, tea with honey, OTC cough drops/ cough med as needed, humidifier , nasal sinus rinses, Tylenol or ibuprofen for fever/ pain Otitis media [id number] Righ t OM, will tx with doxy for sinus infection, if ear pain worsens or does not improve please call back. 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 Per US result, nodule is almost certainly benign, no further follow-up necessary . Will check thyroid blood work, if abnormal with refer to endocrinol balbir, otherwise we will monitor. [id number] LALA Grady Main Office [address] [place], [place] [address] [address] 10/25/2015 08:52:53 10/25/2015 09:52:06 Acute sinusitis 81964798 J01.90 Symptomati c treatment- lots of fluids, rest, tea with honey, OTC cough drops/ cough med as needed, humidifier , nasal sinus rinses, Tylenol or ibuprofen for fever/ pain. Take doxy x full 7 days as prescribed , call or return for worsening or concerns. [id number] Antelmo Flores MD Main Office [address] [place], [place] [address] [address] 12/04/2015 14:09:58 12/04/2015 15:05:22 Backache 749933081 M54.9 pain appears to be muscular although may be coming from her hip joint; doubt LS spine problem. Will refer to [facility]. [id number] Jimena Flores PA-C Main Office [address] [address] [place] [address] 09/03/2016 15:45:49 09/03/2016 16:30:09 Adult health examination 487528438 Z00.00 Fatigue 40697715 R53.83 Body mass index 30+ - obesity 932500106 Z68.33 Mass of axilla 433851236 R22.2 small cystic mass, no recent changes or growth. If pain or change in size , pt. was recommende d to have it removed. [id number] Antelmo Flores MD Main Office [address] [address] [place] [address] 08/01/2017 16:15:14 08/01/2017 16:55:00 Allergic reaction 112398728 T78.40XA Doubt infection, Lyme or gout. Appears to be an allergic reaction. Will do a trial of an antihistam ine and she will call next week if it persists. [id number] Antelmo Flores MD Main Office [address] [address] [place] [address] 10/01/2017 15:01:06 10/01/2017 15:54:55 Adult health examination 241967357 Z00.00 UTD with immunizati ons and [employer] care. Needs infl uenza immunization 459393659 Z23 Swelling o f knee joint 047485169 M25.469 Unclear etiology. Will look into derm and rheumatolo gical etiologies . 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 Not on anticoagul ation. [id number] Antelmo Flores MD Main Office [address] [place] [address] 10/30/2017 15:32:48 10/30/2017 16:11:32 Swelling of knee joint 126368774 M25.469 Unclear etiology. Will look into derm and rheumatolo gical etiologies . Migraine 20789583 G43.90 9 Possible migraines vs muscle strain. Will treat as migraines and see her back in 2 weeks. Discussed prophylaxi s and will hold off for now. [id number] Antelmo Flores MD Main Office [address] [place] [address] 11/19/2017 12:39:42 11/19/2017 13:39:21 Acute pharyngitis 055663943 J02.9 Migraine 50380979 G43.90 9 Dizziness 134119082 R42 It is unclear if her headaches are coming from migraines. Given her fhx of mother dying from a brain aneurysm we will look at brain pathology. [id number] Antelmo Flores MD Main Office [address] [address] [place] [address] 12/18/2017 16:26:57 12/18/2017 16:55:09 Migraine 41108138 G43.909 We discussed prophylaxi s but for now she would like to simply treat each episode. She will call if she changes her mind. 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 [id number] Antelmo Flores MD Main Office [address] [address] [place] [address] 01/06/2019 11:31:58 01/06/2019 12:23:10 Fever 374136053 R50.9 will alternate ibuprofen and acetaminop hen as she has been doing. Sore throat 199409610 J0 2.9 Viral gastroenteritis 11 2113978 A08.4 OOW for the rest of the week and advised her to use OTC imodium for diarrhea. [id number] Antelmo Flores MD Main Office [address] [address] [place] [address] 05/10/2019 15:38:36 05/10/2019 16:35:50 Adult health examination 988832435 Z00.00 UTD with immunizati ons and [employer] care. She had a thyroid nodule on U/S a few years ago. Will check TSH. 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 Not on anticoagul ation. [id number] Antelmo Flores MD Main Office [address] [address] [place] [address] 05/02/2020 15:08:08 05/02/2020 16:19:54 Low back pain 209424548 M54.5 Reactive a irway disease 7547433228 06 J45.909 Left side sciatica 26075 85470 22906 M54.32 Long standing intermitte nt problem never seen by a specialist . [id number] Antelmo Flores MD Main Office [address] [address] [place] [address] 05/05/2020 13:52:03 05/05/2020 14:23:40 Paronychia of finger 054177895 L03.011 bactrim BID x 7 days, keep finger clean and dry, may do warm epsom salt soaks or warm compresses . no dishes / laundry/ cooking without covering with gloves. call/ return for worsening sx or concerns. [id number] Antelmo Flores MD Main Office [address] [address] [place] [address] 08/03/2020 15:39:15 08/03/2020 16:36:30 Adult health examination 146431762 Z00.00 UTD with immunizati ons and [employer] care. She had a thyroid nodule on U/S a few years ago. Will check TSH. 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 Not on anticoagul ation. Major depr essive disorder 899969932 F32.1 Followed by psych and meds are being tried. [id number] Gabo Garcia MD [facility] [address] [address] [place] [address] 09/05/2020 11:48:32 09/05/2020 14:21:34 Atypical chest pain 570752649 R07.89 R sided cp, radiating down RUE [...] then call us back tomorrow for o.v. [id number] Antelmo Flores MD [facility] [address] [facility] [address] [place] [address] 10/30/2020 13:29:51 10/30/2020 16:07:06 Lumbar radiculopathy 039638498 M54.16 She has been in touch with [facility] and is waiting for an approval from her insurance company for a steroid injection. In the meantime we will do a script for oxycodone since this helped in the past. Low back pain 115706047 M54.5 [id number] Antelmo Flores MD Main Office [address] [facility] [address] [facility] [place] [address] 08/08/2021 15:12:05 08/08/2021 16:24:32 Adult health examination 764052629 Z00.00 UTD with immunizati ons and [employer] care. She had a thyroid nodule on U/S a few years ago. Will check TSH. 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 She is currently treated with aspirin and will be started on anticoagul ation if she develops another clot. Major depr essive disorder 624886655 F32.1 Followed by psych and stable on meds. Body mass index 30+ - obesity 226047135 E66.9 Z68.34 Needs infl uenza immunization 859614600 Z23 Thyroid nodule 080611831 E04.1 Low back pain 358323441 M54.5 Has had injections and has to do another round of PT before her insurance will pay for more injections . Currently taking ibuprofen prn. Other NSAIDs (relafen, meloxicam and aleve) did not help. 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 Miller Migraine 09942149 G43.90 9 stable Anxiety 47350785 F41.9 stable, cont meds as dir Deep venou s thrombosis of lower extremity 251337922 I82.409 > 10 yrs ago, took coumadin/l ovenox - off BCP, no problems since, on baby asa since - see above Body mass index 30+ - obesity 733626654 Z68.34 Obesity 162577706 E66.9 [id number] [facility] [address] [address] [place] [address] 06/08/2022 11:36:16 06/10/2022 13:41:49 COVID-19 516320410 U07.1 Reviewed isolation protocol and can be out of isolation on Friday06/14/22. [id number] Antelmo Flores MD Main Office [address] [address] [place] [address] 09/24/2022 15:09:54 09/24/2022 16:15:15 Adult health examination 038437571 Z00.00 UTD with immunizati ons and [employer] care. She had a thyroid nodule on U/S a few years ago. Will check TSH. UTD w/COVID vaccines. Due for a flu vaccine but she will hold off because currently has nasal symptoms. Major depr essive disorder 816430924 F32.1 Followed by psych and stable on meds. Body mass index 30+ - obesity 928419330 E66.9 Z68.33 History of SARS-CoV-2 29 77716959 03900255 Z86.16 Impacted c erumen of bilateral ears 3794474725 270627 H61.23 Allergic rhinitis 513732 04 J30.9 [id number] Antelmo Flores MD [facility] [address] [facility] [address] [place] [address] 12/12/2022 13:24:55 12/12/2022 14:16:32 COVID-19 555218942 U07.1 Reviewed isolation protocol and can be out of isolation on Friday12/15/22. Also reviewed paxlovid SE's. This is her second time taking the med which she tolerated well the last time having only a funny taste in her month. [id number] Nilda castaneda NP Main Office [address] [place] [address] 03/21/2023 15:45:34 03/21/2023 16:48:53 Acute conjunctivitis 99695238 H10.30 SYMPTOMS:w hich eye(s)? leftrednes s? yesdischar ge? yescrustin g or matting on waking? yesexposur e to someone with conjunctiv itis? yes POSSIBLE CONTRAINDI CATIONS TO TELEPHONE TREATMENT: eye pain? noblurry vision? norecent treatment (within 1 month)? notrauma? nolupus or rheumatoid arthritis? no PROVIDER ACTION Reviewed nursing notes?Julian mmended action Antibiotic treatment polytrim , warm compresses , treat both eyes Pain in throat 893947934 R07.0 steam, salt water gargles several times a day, otc pain reliever as needed, call if not improving OTC med if needed for congestion . If eyes not better in 2-3 days to call back [id number] Antelmo Flores MD [address] [address] [place] [address] 09/04/2023 15:04:41 09/05/2023 08:03:32 Generalized anxiety disorder 37505648 F41.1 Was seeing a psych provider and transferre d her care to here. We will continue her on the same meds. Major depr essive disorder 725252042 F32.1 Stable on current regimen. Insomnia 130807394 G47.0 0 Stable on current meds. [id number] Antelmo Flores MD Main Office [address] [address] [place] [address] 05/26/2024 15:56:46 05/26/2024 16:38:27 Morbid obesity 562087806 E66.01 BMI is 37.5. It was at it's lowest 6 years ago when it was 26.4. Flatulence symptom 16972 8004 R14.3 Advised her to try OTC simethicon e. Constipation 24168725 K5 9.00 Continue with fiber and water. [id number] Gabo Garcia MD Main Office [address] [address] 08/16/2024 15:45:02 08/16/2024 16:35:01 Acute otitis externa 36217859 H60.502 [place] [facility] [place] - no sig helpwill treat c topical abx/steroi dsalso, rec prn warm compress to help drain clogged LNs & f/u c ent to possibly adjust size of earpiece of hearing aides [id number] Antelmo Flores MD Main Office [address] [address] 09/29/2024 15:25:49 09/29/2024 15:54:29 Impacted cerumen in left ear 1593902722 616422 H61.22 -recently completed antibiotic drops for AOE>sympto ms of pain resolved, now experienci ng fullness sensation and muffled hearing-on PE; cerumen impaction to the left ear-will provide debrox drops as the cerumen appears hard and is close to the TM-discuss ed proper usage and will have pt contact office for ear lavage if needed [id number] Antelmo Flores MD Main Office [address] [id number] 10/12/2024 15:37:42 10/12/2024 16:41:36 Adult health examination [id number] Z00.00 Had the initial COVID series and 1 booster.Wi ll get a flu and a tetanus vaccine today.UTD w/mammogra m done in March 2024.Looki ng for a new [employer] since hers retired. Needs infl uenza immunization [id number] Z23 19 YEARS AND OLDER ONLY Requires a tetanus booster [id number] Z23 Body mass index 30+ - obesity 133659239 E66.9 Z68.33 Losing weight on wegovy at max dose. 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 She is currently treated with aspirin and will be started on anticoagul ation if she develops another clot. Major depr essive disorder [id number] F32.1 Stable on current regimen. Followed by a mental health provider. Deep venou s thrombosis of lower extremity [id number] I82.409 Historical . Has a factor 5 Leiden def and is currently taking aspirin daily. [id number] Antelmo Flores MD Main Office [address] [facility] [address] 12/14/2024 10:53:06 12/14/2024 11:48:06 Herpes zoster 0214319 B02.9 [id number] Antelmo Flores MD Main Office [address] [facility] [address] 12/23/2024 10:12:55 12/23/2024 11:22:02 Skin lesion 99741933 L98.9 These appear to be herpetic especially given the pain around the side but since they are not improving and her pain is also outside of the dermatome I will refer her to derm for further evaluation and possible bx. Anterior c hest wall pain [id number] R07.89 Could be related to previous shingles with distant neuralgia which is rare but possible. 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 Will order an MRI to r/o MS given her sensory changes in different extrenitie s over time, fatigue and trouble focusing at times. [id number] Antelmo Flores MD Main Office [address] [facility] [address] 05/04/2025 09:45:13 05/04/2025 10:27:09 Body mass index 30+ - obesity 120661437 E66.9 Z68.33 Losing weight on wegovy at max dose but having intermitte nt vomiting. Would like to try a different med to see if the vomiting resolves. Vomiting [id number] R11.1 0 [id number] Secondary to Wegovy.Has been an intermitte nt problem for a few months. [id number] Antelmo Flores MD Main Office [address] [address] 08/02/2025 15:40:12 08/02/2025 16:11:17 Body mass index 30+ - obesity 129643644 E66.9 Z68.33 She has gained weight over the past few months. She is on the highest dose of wegovy and tolerating it well. She will continue on the same dose and we will monitor her weight. If she continues to gain or plateau we will look into getting zepbound approved. Needs infl uenza immunization [id number] Z23 19 YEARS AND OLDER ONLY Health Concerns Section Related Observation LastModified by Organization Detai ls LastModified Time None Recorded Concern Status LastModified by Organization Details LastModified Time None Recorded Advance Directives Directive Y: Payers Insurance Date Sequence Insurance Name Policy Number Policy Carcamo Covered Member ID Carcamo Member ID Guarantor Name 08/27/2025 1 [facility] Deepa Patel [id number] Deepa Patel Notes Date Note Type Note Provider Name and Address Organization Details Recorded Time 10/12/2024 text/html Generic HPI TemplateReported by Patient Antelmo Flores MD [address] [address], [place], [address], [facility] 10/13/2024 11:12:40 12/14/2024 text/html She was seen at [facility] 4 days ago for RLQ abdominal pain. She had a normal CT scan and an US of her right ovary which was essentially benign. She has a f/u with [employer] in a month. She denies n/v or [...] into her back. Antelmo Flores MD [address] [address], [place], [address], [facility] 12/14/2024 11:55:38 12/23/2024 text/html ROS as noted in the HPI She continues to have pain at the [...] has difficulty focusing. Antelmo Flores MD [address], [address], [facility] 01/03/2025 13:01:49 05/04/2025 text/html ROS as noted in the HPI She has been on wegovy for a year and was initially tolerating it well. She would get some mild constipation and nausea a day or 2 after the injection but otherwise tolerated it well. When she went up on the dose however she started having intermittent vomiting along with the nausea. This may occur once a week and sometimes more frequently. Denies abdominal pain and has not seen any blood in her stools. She would like to try another weight loss med to see if the vomiting resolves. Antelmo Flores MD [address], [phone], [facility] 05/04/2025 12:52:30 08/02/2025 text/html ROS as noted in the HPI She has been on wegovy for 15 months (since April 2024) and she had lost a total of 34 lbs in a year but has gained 8 lbs over the last 3 months. She is taking the maximum dose and denies any SE's. Her insurance covers the wegovy. We initially tried to get zepbound covered but her insurance denied this. Antelmo Flores MD [address], [address], [facility] 08/02/2025 17:03:10 OBGyn Episode No OBEpisode recorded.
== END 2025-09-05 15:53 | disposition home or self-care (01) ==
LOC: HO.HSM 15:41
PROVIDERS: PCP Internal Medicine; Visit Provider Psychiatry & Neurology Neurology
DX: G43.009 Migraine without aura, not intractable, without status migrainosus (principal); R90.82 White matter disease, unspecified; G37.9 Demyelinating disease of central nervous system, unspecified
CPT/HCPCS: 99214